=== PATIENT | male | born 1940 | race Caucasian/White ===

== ENCOUNTER 2017-04-17 14:00 | Inpatient (IN) | payer MEDICARE, OTHER ==
[~2017-04-17] VITALS: Ht 182.9 cm; Wt 81.0 kg
[2017-04-17] VITALS (11 sets, daily range): BP systolic 114–169; BP diastolic 60–83; PULSE 57–65; RESP 6–20; TEMP 96.1–97.5; O2SAT 97–100
[~2017-04-17 14:00] MED LIST: ASPI325T PO; LISI10 PO; VIAG25TA PO
[2017-04-17] MEDS ORDERED: SODIUM CHLOR 0.9% 1000 ML INJ 1,000 ML IV ONE (14:18)
--- NOTE | 2017-04-17 14:27 | PD ---
HPI Chief Complaint: Dizziness Time Seen by Provider: 14:16 Travel History International Travel<30 days: No Contact w/Intl Traveler<30days: No Traveled to known affect area: No History of Present Illness HPI This 76-year-old male says that around 8:30 today he was not feeling well. He was lightheaded and dizzy. He had trouble walking and could not walk straight. He went home and checked his blood pressure his blood pressure was elevated and he took an extra pill. He laid down but he still was not feeling well so he came to the emergency department. He was admitted to the hospital in September 2015. At that time he had a syncopal episode and an MRI showed an old basal ganglia lacunar infarct. He is not complaining of headache. He has noted some tingling in his toes. The patient does have frequent troubles with equilibrium. He feels like this is gotten better since he has been started on thyroid medication. He takes aspirin and took it today PFSH Past Medical History Cancer: No Cardiovascular Problems: Yes Endocrine: No Genitourinary: No (ED) Hypertension: Yes Immune Disorder: No Psychiatric: No Reproductive: No Respiratory: No Past Surgical History Body Medical Devices: PT HAS PLATE IN L HIP Social History Alcohol Use: Yes (daily) Tobacco Use: Yes (h.o, quit) Substance Use: No Allergies-Medications (Allergen,Severity, Reaction): Coded Allergies: No Known Allergies (Verified , 04/17/17) Reported Meds & Prescriptions Reported Meds & Active Scripts Active Reported Lisinopril 10 Mg Tab 10 Mg PO DAILY Levothyroxine (Levothyroxine Sodium) 25 Mcg Tab Unknown Dose PO DAILY Aspirin 325 Mg Tab 325 Mg PO DAILY Review of Systems General / Constitutional: No: Fever, Chills Eyes: No: Diploplia, Blurred Vision HENT: No: Headaches Cardiovascular: No: Chest Pain or Discomfort, Palpitations Respiratory: No: Shortness of Breath, Wheezing Gastrointestinal: No: Nausea, Vomiting Genitourinary: No: Frequency, Dysuria Musculoskeletal: No: Myalgias, Arthralgias Skin: No Rash, No Itching Neurologic: Positive: Weakness, Dizziness, No: Focal Abnormalities Endocrine: No: Heat Intolerance Hematologic/Lymphatic: No: Easy Bruising Physical Exam Narrative GENERAL: Well-developed male SKIN: Focused skin assessment warm/dry. HEAD: Atraumatic. Normocephalic. EYES: Pupils equal and round. No scleral icterus. No injection or drainage. ENT: No nasal bleeding or discharge. Mucous membranes pink and moist. NECK: Trachea midline. No JVD. CARDIOVASCULAR: Regular rate and rhythm. No murmur appreciated. RESPIRATORY: No accessory muscle use. Clear to auscultation. Breath sounds equal bilaterally. GASTROINTESTINAL: Abdomen soft, non-tender, nondistended. Hepatic and splenic margins not palpable. MUSCULOSKELETAL: No obvious deformities. No clubbing. No cyanosis. No edema. NEUROLOGICAL: Awake and alert. No obvious cranial nerve deficits. There is no drift of the arm. The left extrusion technician appears slightly weaker than the right. Question of slight weakness of the left leg compared to the right. Sensation is intact. Babinski on the left is equivocal and the right is clearly down PSYCHIATRIC: Appropriate mood and affect; insight and judgment normal. Data Data Last Documented VS Vital Signs Date Time Temp Pulse Resp B/P Pulse Ox O2 Delivery O2 Flow Rate FiO2 04/17/17 14:20 100 Nasal Cannula 2 04/17/17 14:20 16 04/17/17 14:15 67 04/17/17 14:05 97.5 169/83 Orders Cath For Specimen (04/17/17 14:18) Neuro Checks Q2HX12,Q4H (04/17/17 14:18) Nursing Bedside Swallow Assess .ONCE (04/17/17 14:18) Activity Bed Rest (04/17/17 14:18) Diet Npo (04/17/17 Dinner) Prothrombin Time / Inr (Pt) (04/17/17 14:18) Act Partial Throm Time (Ptt) (04/17/17 14:18) Complete Blood Count With Diff (04/17/17 14:18) Basic Metabolic Panel (Bmp) (04/17/17 14:18) Fibrinogen (04/17/17 14:18) Creatine Kinase (Cpk) (04/17/17 14:18) Troponin I (04/17/17 14:18) Ua Includes Microscopic (04/17/17 14:18) Drug Screen, Random Urine (04/17/17 14:18) Type And Screen (04/17/17 14:18) Ct Brain W/O Iv Contrast(Rout) (04/17/17 ) Electrocardiogram (04/17/17 ) Sodium Chlor 0.9% 1000 Ml Inj (Ns 1000 M (04/17/17 14:18) Blood Glucose (04/17/17 14:18) Ecg Monitoring (04/17/17 14:18) Iv Access Insert/Monitor (04/17/17 14:18) NPO (04/17/17 14:18) Oximetry (04/17/17 14:18) Oxygen Administration (04/17/17 14:18) Resp Oxygen Jes[place] C Titrat 1-4 L (04/17/17 14:18) Labs Laboratory Tests Test 04/17/17 14:20 White Blood Count 6.5 TH/MM3 Red Blood Count 5.24 MIL/MM3 Hemoglobin 16.4 GM/DL Hematocrit 48.4 % Mean Corpuscular Volume 92.5 FL Mean Corpuscular Hemoglobin 31.3 PG Mean Corpuscular Hemoglobin 33.8 % Concent Red Cell Distribution Width 12.9 % Platelet Count 219 TH/MM3 Mean Platelet Volume 7.9 FL Neutrophils (%) (Auto) 82.4 % Lymphocytes (%) (Auto) 11.0 % Monocytes (%) (Auto) 4.3 % Eosinophils (%) (Auto) 0.7 % Basophils (%) (Auto) 1.6 % Neutrophils # (Auto) 5.4 TH/MM3 Lymphocytes # (Auto) 0.7 TH/MM3 Monocytes # (Auto) 0.3 TH/MM3 Eosinophils # (Auto) 0.0 TH/MM3 Basophils # (Auto) 0.1 TH/MM3 CBC Comment DIFF FINAL Differential Comment Prothrombin Time 10.5 SEC Prothromb Time International 1.0 RATIO Ratio Activated Partial 22.9 SEC Thromboplast Time Sodium Level 138 MEQ/L Potassium Level 4.1 MEQ/L Chloride Level 105 MEQ/L Carbon Dioxide Level 24.3 MEQ/L Anion Gap 9 MEQ/L Blood Urea Nitrogen 14 MG/DL Creatinine 0.94 MG/DL Estimat Glomerular Filtration 78 ML/MIN Rate Random Glucose 149 MG/DL Calcium Level 8.8 MG/DL Total Creatine Kinase 48 U/L Troponin I LESS THAN 0.02 NG/ML MDM Medical Decision Making Medical Screen Exam Complete: Yes Emergency Medical Condition: Yes Medical Record Reviewed: Yes Differential Diagnosis Differential includes TIA, vertigo, CVA Narrative Course Stroke alert was called on patient's arrival though he actually showed up at 5 hours and 45 minutes into his event. CT scan has been read as negative. Patient has taken an aspirin this morning. He will be admitted for further evaluation Diagnosis Primary Impression: Acute onset of severe vertigo Additional Impression: CVA (cerebrovascular accident) Edwin Vogt MD April 17, 2017 14:27
[2017-04-17 14:31] LABS: AUTOMATED NEUTROPHIL # 5.4 TH/MM3 (1.8-7.7); BASOPHIL # 0.1 TH/MM3 (0-0.2); BASOPHIL % 1.6 % (0.0-2.0); EOSINOPHIL % 0.7 % (0.0-4.0); HEMATOCRIT 48.4 % (39.0-51.0); HEMO FLAGS DIFF FINAL; LYMPHOCYTE # 0.7 TH/MM3 (1.0-4.8); MEAN CELL VOLUME 92.5 FL (80.0-100.0); MEAN CORPUSCULAR HEMOGLOBIN 31.3 PG (27.0-34.0); MEAN CORPUSCULAR HGB CONC 33.8 % (32.0-36.0); MONO % 4.3 % (0.0-8.0); NEUT % 82.4 % (16.0-70.0); PLATELET COUNT 219 TH/MM3 (150-450); RED BLOOD COUNT 5.24 MIL/MM3 (4.50-5.90); RED CELL DISTRIBUTION WIDTH 12.9 % (11.6-17.2); WHITE BLOOD COUNT 6.5 TH/MM3 (4.0-11.0)
[2017-04-17] MEDS ORDERED: ASPI325T PO (14:40)
[2017-04-17] MEDS ORDERED: LEVO25TA4 PO (14:40)
[2017-04-17] MEDS ORDERED: LISI10TA3 PO (14:40)
[2017-04-17 14:41] LABS: CHLORIDE 105 MEQ/L (98-107); POTASSIUM 4.1 MEQ/L (3.5-5.1); SODIUM (NA) 138 MEQ/L (136-145)
--- NOTE | 2017-04-17 14:42 | RADHPO ---
EXAM DATE/TIME: 04/17/2017 14:19 [facility] COMPARISON: CT BRAIN W/O CONTRAST, October 07, 2015, 8:06. INDICATIONS : Stroke alert. Mild left upper and lower extremity weakness. Patient states that he felt these symptom s the last time he had a stroke. RADIATION DOSE: 60.66 CTDIvol (mGy) This report was called by Dr. Grigsby to Dr. Vogt at 2: 40 PM. MEDICAL HISTORY : Hypertension. Cerebrovascular disease. SURGICAL HISTORY : Orthopedic surgery. ENCOUNTER: Initial ACUITY: 1 day PAIN SCALE: 0/10 LOCATION: cranial TECHNIQUE: Multiple contiguous axial images were obtained of the head. Using automated exposure control and adj ustment of the mA and/or kV according to patient size, radiation dose was kept as low as reasonably a chievable to obtain optimal diagnostic quality images. FINDINGS: CEREBRUM: There is mild cerebral atrophy. Ventricles are normal in size. There is stable mild periventricular w anaya matter low attenuation and stable asymmetric low-density in the anterior limb of the left internet marketing intern al capsule. No evidence of midline shift, mass lesion, hemorrhage or acute infarction. No extra-axi al fluid collections are seen. POSTERIOR FOSSA: The cerebellum and brainstem demonstrate no acute finding. The 4th ventricle is midline. The cerebe llopontine angle is unremarkable. EXTRACRANIAL: Visualized sinuses are clear. SKULL: The calvaria is intact. No evidence of skull fracture. CONCLUSION: 1. No acute intracranial abnormality is identified. 2. Stable chronic changes include mild cerebral atrophy and mild periventricular white matter low att enuation characteristic of chronic microvascular ischemia. Jung Grigsby MD on April 17, 2017 at 14:33 Board Certified Radiologist. This report was verified electronically.
[2017-04-17 14:44] LABS: ANION GAP 9 MEQ/L (5-15); BICARBONATE 24.3 MEQ/L (21.0-32.0); BLOOD UREA NITROGEN 14 MG/DL (7-18)
[2017-04-17 14:45] LABS: APTT (PATIENT) 22.9 SEC (24.3-30.1); PROTHROMBIN TIME - PATIENT 10.5 SEC (9.8-11.6)
[2017-04-17 14:47] LABS: GLOMERULAR FILTRATION RATE 78 ML/MIN (>89)
[2017-04-17 14:54] LABS: CREATINE KINASE 48 U/L (39-308)
--- NOTE | 2017-04-17 15:28 | HHI.HP ---
[facility] Service [facility] Primary Care Physician Unknown Admission Diagnosis CVA Diagnoses: (1) Acute onset of severe vertigo Diagnosis: Principal (2) Hypertension Diagnosis: Secondary Chief Complaint: Dizziness, Travel History International Travel<30 Days: No Contact w/Intl Traveler <30 Da: No Traveled to Known Affected Are: No History of Present Illness Written by Anil Gallardo, acting as scribe for Dr. Damon on 04/17/17 at 15: 27. 76-year-old male with known history of hypertension, hypothyroidism, history of CVA who presented to hospital because of dizziness, disequilibrium. Patient indicates that his normal state of health this morning when he woke up at 6 AM. He went out as normal morning routine and took his blood pressure medication and thyroid medicine. He went to [employer] shop this morning at approximately 8 AM and on his way home he states that he started developing some mild dizziness so when he got home he checks his blood pressure and he has systolic blood pressure 160. With his blood pressure elevated he did take another pill of his blood pressure medication. He laid down and he thinks he took a nap. When he woke up it was hot in the room so he walked to the thermostat and he noticed that he had severe dizziness, had difficulty walking and ambulating. He went laid back down in bed and called his son who brought him to the hospital for evaluation. Patient does not know exactly what time he woke up from his nap. At the present time he denies any lightheadedness or dizziness. He denies any unilateral weakness, paresthesia, blurred vision, visual disturbances, difficulty eating or swallowing food. Patient had workup in the emergency department with CT scan of the brain which did not indicate any acute abnormality. It was recommended by ER physician and patient be observed in the hospital for further evaluation and management of possible stroke. Review of Systems Constitutional: COMPLAINS OF: Dizziness, DENIES: Diaphoretic episodes, Fatigue , Fever, Weight gain, Weight loss, Chills, Change in appetite, Night Sweats Eyes: DENIES: Blurred vision, Diplopia, Eye inflammation, Eye pain, Vision loss , Double Vision Ears, nose, mouth, throat: DENIES: Vertigo, Nasal discharge, Throat pain, Ear Pain, Running Nose, Sinus Pain Respiratory: DENIES: Apneas, Cough, Snoring, Wheezing, Hemoptysis, Sputum production, Shortness of breath Cardiovascular: DENIES: Chest pain, Palpitations, Syncope, Dyspnea on Exertion , Lower Extremity Edema, Orthopnea Gastrointestinal: DENIES: Abdominal pain, Black stools, Bloody stools, Constipation, Diarrhea, Nausea, Vomiting, Difficulty Swallowing, Anorexia Musculoskeletal: DENIES: Joint pain, Muscle aches, Stiffness, Joint Swelling, Back pain, Neck pain Neurologic: COMPLAINS OF: Poor Balance, DENIES: Abnormal gait, Headache, Localized weakness, Paresthesias, Seizures, Speech Problems, Tremor Psychiatric: DENIES: Anxiety, Confusion, Mood changes, Depression, Hallucinations, Agitation, Suicidal Ideation, Homicidal Ideation, Delusions Past Family Social History Past Medical History History CVA Hypertension Hypothyroidism Past Surgical History Hemorrhoidectomy Left hip surgery Reported Medications Reported Meds & Active Scripts Active Reported Lisinopril 10 Mg Tab 10 Mg PO DAILY Levothyroxine (Levothyroxine Sodium) 25 Mcg Tab Unknown Dose PO DAILY Aspirin 325 Mg Tab 325 Mg PO DAILY Allergies: Coded Allergies: No Known Allergies (Verified , 04/17/17) Family History Reviewed and significant for mother from leukemia. No family history of heart disease, lung disease, diabetes, seizures, stroke Social History Patient quit smoking 35 years ago, prior to that he smoked one pack a cigarettes a day since he was 18 years old. Patient states he drinks approximately 1 beer a month at this time. Patient eyes any illicit drugs Physical Exam Vital Signs Vital Signs Date Time Temp Pulse Resp B/P Pulse Ox O2 Delivery O2 Flow Rate FiO2 04/17/17 14:20 100 Nasal Cannula 2 04/17/17 14:20 16 100 Nasal Cannula 2 04/17/17 14:15 67 16 04/17/17 14:05 97.5 65 16 169/83 99 Physical Exam GENERAL: Well-developed, well-nourished, in no acute distress. alert and orientated HEENT: Head is normocephalic without any lesions or masses noted. Facial features are symmetric. Eyes: Pupils equal round reactive to light. Extraocular muscles are intact. Conjunctivae were clear. Oropharyngeal: Pharynx without any erythema edema. Tongue is midline without deviation. Buccal mucosa is moist without any masses or lesions NECK: Supple without any masses. Trachea midline no deviation. No JVD, no bruits are appreciated CARDIAC: Regular rhythm, regular rate. S1/S2 are heard. No murmurs gallops or rubs. LUNGS: Clear to auscultation bilaterally. No wheeze, rhonchi or rales. No use of accessory muscles on inspiration or expiration. ABDOMEN: Soft, nontender. Nondistended. Bowel sounds heard in all 4 quadrants. No organomegaly or masses. Negative rebound, negative guarding EXTREMITIES: No edema, pulses are equal bilaterally. No cyanosis or clubbing NEUROLOGY: Mood and affect appear appropriate. Cranial nerves II through XII grossly intact. Muscle strength 5/5 in upper and lower extremities bilaterally. Deep tendon reflexes are 2+ in upper and lower extremities bilaterally. Laboratory Laboratory Tests Test 04/17/17 14:20 White Blood Count 6.5 Red Blood Count 5.24 Hemoglobin 16.4 Hematocrit 48.4 Mean Corpuscular Volume 92.5 Mean Corpuscular Hemoglobin 31.3 Mean Corpuscular Hemoglobin 33.8 Concent Red Cell Distribution Width 12.9 Platelet Count 219 Mean Platelet Volume 7.9 Neutrophils (%) (Auto) 82.4 Lymphocytes (%) (Auto) 11.0 Monocytes (%) (Auto) 4.3 Eosinophils (%) (Auto) 0.7 Basophils (%) (Auto) 1.6 Neutrophils # (Auto) 5.4 Lymphocytes # (Auto) 0.7 Monocytes # (Auto) 0.3 Eosinophils # (Auto) 0.0 Basophils # (Auto) 0.1 CBC Comment DIFF FINAL Differential Comment Prothrombin Time 10.5 Prothromb Time International 1.0 Ratio Activated Partial 22.9 Thromboplast Time Sodium Level 138 Potassium Level 4.1 Chloride Level 105 Carbon Dioxide Level 24.3 Anion Gap 9 Blood Urea Nitrogen 14 Creatinine 0.94 Estimat Glomerular Filtration 78 Rate Random Glucose 149 Calcium Level 8.8 Total Creatine Kinase 48 Troponin I LESS THAN 0.02 Result Diagram: 04/17/17 1420 04/17/17 1420 Imaging Last Impressions Head CT 04/17/17 0000 Signed Impressions: Service Date/Time: Monday, April 17, 2017 14:19 - CONCLUSION: 1. No acute intracranial abnormality is identified. 2. Stable chronic changes include mild cerebral atrophy and mild periventricular white matter low attenuation characteristic of chronic microvascular ischemia. Jung Grigsby MD Assessment and Plan Assessment and Plan Dizziness, disequilibrium: A patient with known history of previous CVA and left basal ganglia Possible etiologies could include cerebellar stroke, vertigo, overuse of blood pressure medication CT of the brain did not show any acute abnormality. We'll do further evaluation with MRI of the brain, MRA of the brain Obtain carotid ultrasound We'll obtain echocardiogram Check further laboratory studies to include B12, folate, lipid panel, sedimentation rate, TSH Cardiac telemetry Obtain PT/OT evaluations Hypertension Permissive hypertension at this time When necessary medications to keep systolic blood pressure less than 200, diastolic pressure less than 100 Hypothyroidism Check TSH Resume replacement therapy DVT prevention Sequential compression devices This note was transcribed by scribe [Anil Gallardo]. I, Dr. Carter Damon personally performed the history, physical exam, and medical decision making; and confirmed the accuracy of the information in the transcribed note. Authenticated by Dr. Carter Damon on 04/17/17 at 16:40. Problem Qualifiers (1) Hypertension: Qualified Code: I15.9 - Secondary hypertension Anil Gallardo April 17, 2017 3:28 pm Carter Damon MD April 17, 2017 4:40 pm
[2017-04-17] MEDS ORDERED: ONDANSETRON HCL 4 MG/2 ML VIAL IVP PRN (15:30)
[2017-04-17] MEDS ORDERED: NALOXONE HCL 0.4 MG/ML AMP IV PRN (15:30)
[2017-04-17] MEDS ORDERED: SODIUM CHLORIDE 0.9% FLUSH 10 ML FLUSH IV FLUSH PRN (15:30)
[2017-04-17] MEDS ORDERED: DOCUSATE SODIUM 100 MG CAP PO PRN (16:30)
[2017-04-17] MEDS ORDERED: CALCIUM CARBONATE 500 MG CHEWABLE TAB CHEW PRN (16:30)
[2017-04-17] MEDS ORDERED: ACETAMINOPHEN 325 MG TAB PO PRN (16:30)
--- NOTE | 2017-04-17 17:22 | RADHPO ---
EXAM DATE/TIME: 04/17/2017 16:46 [facility] COMPARISON: CT BRAIN W/O CONTRAST, April 17, 2017, 14:19. MRI BRAIN W/O CONTRAST, October 07, 2015, 15:56. INDICATIONS : Vertigo. CVA. MEDICAL HISTORY : Hypertension. SURGICAL HISTORY : Left hip replacement. ENCOUNTER: Initial ACUITY: 1 day PAIN SCORE: 0/10 LOCATION: TECHNIQUE: Multiplanar, multisequence MRI of the brain was performed without contrast. FINDINGS: CEREBRUM: There is mild cerebral atrophy. Ventricles are normal in size. No midline shift, mass lesion, hemorr feroz or acute infarction. No extraaxial fluid collections are seen. The pituitary gland and suprase llar cistern are normal in configuration. WHITE MATTER: There is mild to moderate periventricular white matter signal change. There is stable signal change i n the anterior horn of the left internal capsule. POSTERIOR FOSSA: The cerebellum and brainstem demonstrate no acute finding. The 4th ventricle is midline. The cerebel lopontine angle is unremarkable. The cerebellar tonsils are normal in position.DIFFUSION IMAGING: No focal areas of restricted diffusion are seen. No evidence of acute infarction. EXTRACRANIAL: The visualized portions of the orbits and paranasal sinuses are unremarkable. CONCLUSION: 1. No acute intracranial abnormality is identified. There are no findings to indicate recent ischemia . 2. Chronic changes include mild cerebral atrophy and white matter changes bilaterally characteristic of chronic microvascular ischemia. Jung Grigsby MD on April 17, 2017 at 17:17 Board Certified Radiologist. This report was verified electronically.
--- NOTE | 2017-04-17 17:34 | RADHPO ---
EXAM DATE/TIME: 04/17/2017 16:46 [facility] COMPARISON: MRA BRAIN W/O CONTRAST, October 07, 2015, 15:56. INDICATIONS : Vertigo. MEDICAL HISTORY : Hypertension. SURGICAL HISTORY : Left hip replacement. ENCOUNTER: Initial ACUITY: 1 day PAIN SCORE: 0/10 LOCATION: head Please note a normal MRA of the brain does not entirely exclude the possibility of a small aneurysm, nor the possibility of distal intracranial vessel disease. TECHNIQUE: 3D time of flight MRA was performed. Source images, multiplanar STS MIP, and 3D volume MIP reconstru ctions were reviewed. FINDINGS: Anterior circulation: The internal carotid arteries demonstrate no abnormality or atherosclerotic change. A1 segments and m ore distal anterior cerebral arteries are symmetric and within normal limits. The middle cerebral art brendan branches demonstrate symmetric flow related enhancement. No aneurysm or high-grade stenosis is id entified. Posterior circulation: There are patent posterior cerebral arteries bilaterally. Vertebral arteries are codominant. The basi lar artery and posterior cerebral arteries demonstrate no significant stenosis or abnormality. No ane urysm is visualized. CONCLUSION: No acute intracranial vascular abnormality is identified. Jung Grigsby MD on April 17, 2017 at 17:28 Board Certified Radiologist. This report was verified electronically.
[2017-04-17] MEDS ORDERED: SODIUM CHLOR 0.9% 1000 ML INJ 1,000 ML IV SCH (17:45)
--- NOTE | 2017-04-17 17:45 | PD.CONS ---
History of Present Illness Service Neurology Consult Requested By er Reason for Consult stroke alert Primary Care Physician Unknown History of Present Illness 76-year-old m admitted for not feeling well, gait imbalance. began this am, >5 1 /2 hrs prior to arrival. not iv tpa candidate. also, mild symptoms that have improved. c/o feeling "hot" and unsteady gait no focal weakness, no sensory symptoms. no visual or speech changes. took extra bp meds after he noticed his bp systolic 160's and thought this may be the cause. glucose 149. ct brain naicp. 2 weeks ago had an episode in which his left arm went numb transiently. no cp, no head/neck trauma. takes aspirin daily. 09/2015 mri brain-no acute stroke. mra brain/carotid negative for any significant vasocclusive dz. Review of Systems as per medical hp/above Past Family Social History Past Medical History Hypertension Hypothyroidism Past Surgical History Hemorrhoidectomy Left hip surgery Reported Medications Reported Meds & Active Scripts Active Reported Lisinopril 10 Mg Tab 10 Mg PO DAILY Levothyroxine (Levothyroxine Sodium) 25 Mcg Tab Unknown Dose PO DAILY Aspirin 325 Mg Tab 325 Mg PO DAILY Allergies: Coded Allergies: No Known Allergies (Verified , 04/17/17) Family History Reviewed and significant for mother from leukemia. No family history of heart disease, lung disease, diabetes, seizures, stroke Social History Patient quit smoking 35 years ago, prior to that he smoked one pack a cigarettes a day since he was 18 years old. Patient states he drinks approximately 1 beer a month at this time. Patient eyes any illicit drugs Review of Systems All other ROS: ROS reviewed as documented in chart Past Family Social History Allergies: Coded Allergies: No Known Allergies (Verified , 04/17/17) Active Ordered Medications Current Medications Medications (Trade) Dose Ordered Sig/Dulce Route Start Time Stop Time Status Last Admin (NS 1000 ml Inj) 1,000 ml @ 70 mls/hr [id number] ONCE IV 04/17/17 14:18 04/18/17 04:35 04/17/17 14:45 (NS Flush) 2 ml UNSCH PRN IV FLUSH 04/17/17 15:30 (NS Flush) 2 ml BID IV FLUSH 04/17/17 21:00 (Zofran Inj) 4 mg Q6H PRN IVP 04/17/17 15:30 (Narcan Inj) 0.4 mg UNSCH PRN IV 04/17/17 15:30 (Aspirin) 325 mg DAILY PO 04/18/17 09:00 (Tylenol) 650 mg Q4H PRN PO 04/17/17 16:30 (Colace) 100 mg BID PRN PO 04/17/17 16:30 (Tums Chew) 1,000 mg TID PRN CHEW 04/17/17 16:30 Exam I&O / VS Vital Signs Date Time Temp Pulse Resp B/P Pulse Ox O2 Delivery O2 Flow Rate FiO2 04/17/17 16:30 63 16 148/72 100 Nasal Cannula 2 04/17/17 16:00 62 16 142/75 100 Nasal Cannula 2 04/17/17 15:30 64 16 158/81 100 Nasal Cannula 2 04/17/17 15:00 58 16 141/73 100 Nasal Cannula 2 04/17/17 14:30 60 16 159/77 98 Nasal Cannula 2 04/17/17 14:20 100 Nasal Cannula 2 04/17/17 14:20 16 100 Nasal Cannula 2 04/17/17 14:15 67 16 04/17/17 14:05 97.5 65 16 169/83 99 General: Alert and Oriented, No acute distress Eye: EOMI Respiratory: Non-labored respirations Neurologic: Alert, Oriented, Normal motor, CN II-XII intact Psychiatric: Cooperative, Appropriate mood & affect, Normal judgement Exam Comments ox 3, follows, no aphasia, eomi, vff, ou 3-2mm, face sym, rt hearing aid, no focal weakness, kj brisker l.rt, no clonus, planterflexor. gait steady romberg negative, tandem difficult Review/Management Diagnosis/Plan: (1) TIA (transient ischemic attack) Plan: possible vs recurrent vestibulopathy recs add plavix; d/c aspirin in 6 weeks statin for ldl>70 tele; should get outpatient event monitor, cardio eval [facility] the [facility] to r/o afib p.t. 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
[2017-04-17] MEDS: HEPARIN SODIUM - SQ 10,000 UNITS/ML VIAL SQ SCH (18:05)
[2017-04-17] MEDS: CLOPIDOGREL 75 MG TAB PO SCH (18:08)
[2017-04-17 18:13] LABS: BLOOD, URINE NEG (NEG); GLUCOSE,URINE NEG (NEG); KETONE, URINE 15 mg/dL (NEG); NITRITE,URINE NEG (NEG)
[2017-04-17 18:21] LABS: AMPHETAMINE, URINE NEG (NEG)
[2017-04-17 18:29] LABS: URINE COLOR YELLOW (YELLW/STRAW)
[2017-04-17 18:30] LABS: MUCUS URINE MOD /lpf (OCC); SQUAMOUS EPITHELIAL CELL URINE 0-5 /hpf (0-5); WBC, URINE 0-2 /hpf (0-5)
[2017-04-17 18:31] LABS: BARBITURATES, URINE NEG (NEG)
[2017-04-17 18:33] LABS: COCAINE, URINE NEG (NEG)
--- NOTE | 2017-04-17 19:56 | EKG ---
Date Performed: 04/17/2017 Time Performed: 14:00:54 PTAGE: 76 years EKG: Sinus rhythm . Left anterior fascicular block Lateral T wave changes are nonspecific Borderline ECG PREVIOUS TRACING : 10/07/2015 07.53 Compared to prior tracing no significant change DOCTOR: Kristi Du Interpretating Date/Time 04/17/2017 19:55:49
[2017-04-17] MEDS: SODIUM CHLORIDE 0.9% FLUSH 10 ML FLUSH IV FLUSH SCH (21:00)
[2017-04-17 22:18] LABS: HEMOGLOBIN A1b 1.5 %; HEMOGLOBIN Ao 85.8 %; HEMOGLOBIN LA1C 2.3 %
[2017-04-18] VITALS (8 sets, daily range): BP systolic 103–134; BP diastolic 58–85; PULSE 53–78; RESP 18–20; TEMP 96.7–97.6; O2SAT 93–100
[2017-04-18] MEDS: HEPARIN SODIUM - SQ 10,000 UNITS/ML VIAL SQ SCH ×2 (06:00→17:33)
[2017-04-18 07:41] LABS: AUTOMATED NEUTROPHIL # 3.1 TH/MM3 (1.8-7.7); BASOPHIL # 0.1 TH/MM3 (0-0.2); BASOPHIL % 1.1 % (0.0-2.0); EOSINOPHIL # 0.2 TH/MM3 (0-0.4); EOSINOPHIL % 4.3 % (0.0-4.0); HEMATOCRIT 43.3 % (39.0-51.0); HEMO FLAGS DIFF FINAL; LYMPH % 23.5 % (9.0-44.0); LYMPHOCYTE # 1.2 TH/MM3 (1.0-4.8); MEAN CELL VOLUME 93.1 FL (80.0-100.0); MEAN CORPUSCULAR HEMOGLOBIN 31.4 PG (27.0-34.0); MEAN CORPUSCULAR HGB CONC 33.7 % (32.0-36.0); MONO % 7.6 % (0.0-8.0); NEUT % 63.5 % (16.0-70.0); PLATELET COUNT 191 TH/MM3 (150-450); RED BLOOD COUNT 4.65 MIL/MM3 (4.50-5.90); RED CELL DISTRIBUTION WIDTH 12.9 % (11.6-17.2)
[2017-04-18 07:52] LABS: CHLORIDE 107 MEQ/L (98-107); SODIUM (NA) 141 MEQ/L (136-145)
[2017-04-18 08:03] LABS: ANION GAP 8 MEQ/L (5-15); BICARBONATE 25.6 MEQ/L (21.0-32.0); BLOOD UREA NITROGEN 12 MG/DL (7-18)
[2017-04-18 08:06] LABS: ALT (GPT) 17 U/L (12-78); AST (GOT) 10 U/L (15-37); GLOMERULAR FILTRATION RATE 89 ML/MIN (>89)
[2017-04-18 08:08] LABS: TOTAL BILIRUBIN ADULT 0.8 MG/DL (0.2-1.0)
[2017-04-18 08:09] LABS: ALKALINE PHOSPHATASE 48 U/L (45-117)
[2017-04-18] MEDS: CLOPIDOGREL 75 MG TAB PO SCH (08:52)
[2017-04-18] MEDS: LEVOTHYROXINE SODIUM 25 MCG TAB PO SCH (08:52)
[2017-04-18] MEDS: ASPIRIN 325 MG TAB PO SCH (08:52)
[2017-04-18] MEDS: SODIUM CHLORIDE 0.9% FLUSH 10 ML FLUSH IV FLUSH SCH ×2 (08:53→20:47)
--- NOTE | 2017-04-18 08:58 | HHI.PR ---
Subjective Remarks Patient seen and examined today in follow-up for lightheadedness, dizziness. Patient indicates that he is feeling much better. He has been up walking around without any recurrent lightheadedness, dizziness, disequilibrium. Patient still undergoing workup at this time. Final disposition after workup complete and discussion with neurologist Objective Vitals Vital Signs Date Time Temp Pulse Resp B/P Pulse Ox O2 Delivery O2 Flow Rate FiO2 04/18/17 04:00 97.2 54 18 125/76 99 04/18/17 00:00 97.4 53 18 103/58 99 04/17/17 21:32 98 21 04/17/17 20:08 61 04/17/17 20:00 97.0 59 20 114/69 98 04/17/17 18:00 96.1 57 18 147/60 97 04/17/17 16:30 63 16 148/72 100 Nasal Cannula 2 04/17/17 16:00 62 16 142/75 100 Nasal Cannula 2 04/17/17 15:30 64 16 158/81 100 Nasal Cannula 2 04/17/17 15:00 58 16 141/73 100 Nasal Cannula 2 04/17/17 14:30 60 16 159/77 98 Nasal Cannula 2 04/17/17 14:20 100 Nasal Cannula 2 04/17/17 14:20 16 100 Nasal Cannula 2 04/17/17 14:15 67 16 04/17/17 14:05 97.5 65 16 169/83 99 I/O 04/17/17 04/17/17 04/17/17 04/18/17 04/18/17 04/18/17 07:00 15:00 23:00 07:00 15:00 23:00 Intake Total 481 ml 864 ml Output Total 150 ml Balance 481 ml 714 ml Intake Oral 240 ml 240 ml IV Total 241 ml 624 ml Output Urine Total 150 ml # Voids 2 2 # Bowel Movements 0 0 Result Diagram: 04/18/17 0610 04/18/17 0610 Objective Remarks GENERAL: Well-developed, well-nourished, in no acute distress. alert and orientated HEENT: Head is normocephalic without any lesions or masses noted. Facial features are symmetric. Eyes: Pupils equal round reactive to light. Extraocular muscles are intact. Conjunctivae were clear. NECK: Supple without any masses. Trachea midline no deviation. No JVD, CARDIAC: Regular rhythm, regular rate. S1/S2 are heard. No murmurs gallops or rubs. LUNGS: Clear to auscultation bilaterally. No wheeze, rhonchi or rales. No use of accessory muscles on inspiration or expiration. ABDOMEN: Soft, nontender. Nondistended. Bowel sounds heard in all 4 quadrants. No organomegaly or masses. Negative rebound, negative guarding EXTREMITIES: No edema, pulses are equal bilaterally. No cyanosis or clubbing NEUROLOGY: Mood and affect appear appropriate. Cranial nerves II through XII grossly intact. Moving all extremities, speech is clear Urinary Catheter: No Vascular Central Line Catheter: No A/P Assessment and Plan Dizziness, disequilibrium: A patient with known history of previous CVA and left basal ganglia Possible etiologies could include cerebellar stroke, vertigo, overuse of blood pressure medication, bradycardia CT of the brain did not show any acute abnormality. MRI and MRA of the brain were unremarkable Carotid ultrasound indicates 5069 percent bilateral internal carotid stenosis , will pursue MRA of the carotid for further evaluation MRA of the carotid indicate 60% stenosis of the right internal carotid with irregularity and deep plaque ulceration. Smooth stenosis of the left internal carotid artery at 4050 percent Echocardiogram indicates normal systolic function, ejection fraction 55-60%. MRI of the cervical spine, pending Further laboratory studies to include B12, folate, sedimentation rate, TSH were unremarkable, Lipid panel indicates LDL 74, will start Lipitor 10 mg daily Cardiac telemetry was reviewed which indicated bradycardia from 39-50 between 6 PM and 3 AM this morning Awaiting PT/OT evaluations Neurology evaluated the patient Plavix was added to regimen. Continue aspirin for now and discontinue in 6 weeks per neurology Consult vascular surgery for symptomatic carotid stenosis Hypertension Permissive hypertension at this time When necessary medications to keep systolic blood pressure less than 200, diastolic pressure less than 100 Blood pressure has been stable, patient with episodes of bradycardia. Will reevaluate resumption of home medications Hypothyroidism Check TSH Resumed replacement therapy DVT prevention Sequential compression devices Anil Gallardo April 18, 2017 08:58
--- NOTE | 2017-04-18 09:00 | RADHPO ---
EXAM DATE/TIME: 04/18/2017 08:23 [facility] COMPARISON: No previous studies available for comparison. INDICATIONS : Cerebrovascular accident. Dizziness. MEDICAL HISTORY : Hypertension. SURGICAL HISTORY : Lef hip plate. ENCOUNTER: Subsequent ACUITY: 1 day PAIN SCORE: 0/10 LOCATION: Bilateral neck PEAK SYSTOLIC VELOCITIES (cm/sec): ICA/CCA RATIO: Right: 1.9 Left: 1.7 ICA: Right: 164 Left: 153 CCA: Right: 85 Left: 92 ECA: Right: 99 Left: 110 VERTEBRAL: Right: 42 antegrade Left: 52 antegrade Elevated flow velocities and ICA/CCA ratios have been found to correlate with increased degrees of vessel stenosis, calculated as percentage of diameter relative to a normal segment of distal ICA/CCA FINDINGS: RIGHT CAROTID: Moderate to severe plaque. The waveforms are within normal limits. LEFT CAROTID: Moderate to severe plaque. The waveforms are within normal limits. VERTEBRAL ARTERIES: Antegrade flow is seen in both vertebral arteries. MISCELLANEOUS: None. CONCLUSION: There are 50-69% stenoses within both internal carotid arteries. Flaco oJrdan MD on April 18, 2017 at 8:58 Board Certified Radiologist. This report was verified electronically.
[2017-04-18 09:01] LABS: HDL CHOLESTEROL 47.7 MG/DL (40.0-60.0); LDL CHOLESTEROL 72 MG/DL (0-99)
--- NOTE | 2017-04-18 11:05 | EC ---
Study Study Date:04/18/2017 STUDY CONCLUSIONS SUMMARY - Left ventricle: The cavity size was normal. Systolic function was normal. The estimated ejection fraction was in the range of 55% to 60%. Although no diagnostic regional wall motion abnormality was identified, this possibility cannot be completely excluded on the basis of this study. Doppler parameters are consistent with abnormal left ventricular relaxation (grade 1 diastolic dysfunction). - Aortic valve: Mild regurgitation. If LV function is below 40, please consider prescribing an ACEI or ARB or document rationale for non-use. PROCEDURE DATA STUDY STATUS: Elective. Procedure: Transthoracic echocardiography. Image quality was good. Scanning was performed from the parasternal, apical, and subcostal acoustic windows. Study completion: The patient tolerated the procedure well. Transthoracic echocardiography. M-mode, complete 2D, complete spectral Doppler, and color Doppler. Patient status: Inpatient. CARDIAC ANATOMY LEFT VENTRICLE: The cavity size was normal. Systolic function was normal. The estimated ejection fraction was in the range of 55% to 60%. Although no diagnostic regional wall motion abnormality was identified, this possibility cannot be completely excluded on the basis of this study. Doppler parameters are consistent with abnormal left ventricular relaxation (grade 1 diastolic dysfunction). AORTIC VALVE: Probably trileaflet; mildly thickened leaflets. Doppler: There was no stenosis. Mild regurgitation. Peak gradient: 16mm Hg (S). MITRAL VALVE: The valve appears to be grossly normal. Doppler: There was no evidence for stenosis. Trace regurgitation. Peak gradient: 2mm Hg (D). LEFT ATRIUM: The atrium was normal in size. ATRIAL SEPTUM: No defect or patent foramen ovale was identified. RIGHT VENTRICLE: The cavity size was normal. PULMONIC VALVE: Not well visualized. Doppler: There was no evidence for stenosis. No significant regurgitation. TRICUSPID VALVE: The valve appears to be grossly normal. Doppler: There was no evidence for stenosis. Trace regurgitation. PERICARDIUM: There was no pericardial effusion. BASIC MEASUREMENTS ADULT Normal Left ventricle LV internal dimension, ED, chordal level, *41.7 mm 43-52 PLAX LV internal dimension, ES, chordal level, 33 mm 23-38 PLAX Fractional shortening, chordal level, PLAX *21 % >29 LV posterior wall thickness, ED 8.05 mm IVS/LVPW ratio, ED 1.15 <1.3 Ventricular septum Septal thickness, ED 9.22 mm Aortic valve Leaflet separation 22 mm 15-26 Left atrium Anterior-posterior dimension 32 mm Right ventricle RV internal dimension, ED, PLAX 20.4 mm 19-38 BASIC MEASUREMENTS ADULT Normal Aortic valve Leaflet separation 22 mm 15-26 Aorta Root diameter, ED 32 mm 20-37 DOPPLER MEASUREMENTS ADULT Normal Aortic valve Peak velocity, S 197 cm/s Peak gradient, S 16 mm Hg Mitral valve Peak E-wave velocity 73.1 cm/s Peak A-wave velocity 88.4 cm/s Peak gradient, D 2 mm Hg Peak E/A ratio 0.8 Tricuspid valve Regurgitant peak velocity 159 cm/s Peak RV-RA gradient, S 10 mm Hg Maximal regurgitant velocity 159 cm/s LEGEND: Mean values are shown as u=mean value. Asterisk (*) gotti values outside specified normal range. Prepared and signed by Shaun Shankar [id number]
[2017-04-18 12:43] LABS: RAPID PLASMA REAGIN SCREEN NON-REACTIVE (NON-REACTVE)
[2017-04-18] MEDS ORDERED: GADODIAMIDE PF 287 MG/ML 20 ML VIAL (for RAD MRI) IV ONE (14:59)
--- NOTE | 2017-04-18 15:24 | RADHPO ---
EXAM DATE/TIME: 04/18/2017 13:58 [facility] COMPARISON: US CAROTID ARTERIES, April 18, 2017, 8:23. INDICATIONS : Weakness. CONTRAST: 20 cc Omniscan (gadodiamide) IV MEDICAL HISTORY : Hypertension. SURGICAL HISTORY : Hip surgery. ENCOUNTER: Initial ACUITY: 2 day PAIN SCORE: 1/10 LOCATION: neck Percent stenosis is calculated using the diameter of the stenotic region over the diameter of the nor mal distal internal carotid artery. TECHNIQUE: Bolus infused MRA of the extracranial circulation was performed using a neurovascular coil. Post pro cessing was performed including rotating subvolume maximum intensity projections of each carotid iris ry, rotating full volume maximum intensity projections of both carotid arteries, sagittal and coronal sliding thin slab reformations of each carotid artery, and left oblique sliding thin slab reformatio n through the aortic arch to include the origin of the arch branch vessels. FINDINGS: AORTIC ARCH: There is a three vessel origin of the great vessels from the aorta. No evidence of ostial narrowing. RIGHT CAROTID: There is irregular eccentric stenosis involving the proximal right internal carotid artery with assoc iated deep plaque ulceration. There is about 60% luminal narrowing which is maximum at a location abo ut a centimeter above the bifurcation. Beyond this disease, the right ICA regains normal caliber and appearance and is thereafter widely patent to the skull base. LEFT CAROTID: There is moderate smooth tapering of the proximal left ICA with perhaps 40-50% stenotic narrowing 1-2 cm above the bifurcation region. Remainder of the vessel is intact to the skull base. VERTEBRALS: Patent bilaterally, left side minimally dominant. CONCLUSION: 60% right carotid stenosis with irregularity and deep plaque ulceration. Smooth 40-50% stenosis on th e left. Jung Mckeon MD on April 18, 2017 at 15:17 Board Certified Radiologist. This report was verified electronically.
--- NOTE | 2017-04-18 15:38 | RADHPO ---
EXAM DATE/TIME: 04/18/2017 13:58 [facility] COMPARISON: No previous studies available for comparison. INDICATIONS : Vertigo. MEDICAL HISTORY : Hypertension. SURGICAL HISTORY : Hip surgery. ENCOUNTER: Initial ACUITY: 2 day PAIN SCORE: 0/10 LOCATION: neck TECHNIQUE: Multiplanar, multisequence MRI examination of the cervical spine was performed. FINDINGS: VERTEBRAE: Normal vertebral body height. Homogeneous marrow signal. ALIGNMENT: No evidence of subluxation. CORD: Normal configuration and signal. POST FOSSA: The cerebellar tonsils are normal in position. C2-C3: The thecal sac has a normal configuration. There is no evidence of disc herniation or spinal canal s tenosis. The neural foramina are patent bilaterally. C3-C4: Mild broad-based disc bulge abuts the thecal sac without canal stenosis. The neural foramina are carter nt bilaterally. C4-C5: Mild broad-based disc bulge abuts the thecal sac without canal stenosis. The neural foramina are carter nt bilaterally. C5-C6: Mild broad-based protrusion abuts the thecal sac without canal stenosis. Moderate neural foraminal na rrowing bilaterally C6-C7: Mild broad-based protrusion abuts the thecal sac without canal stenosis. Mild neural foraminal narrow ing bilaterally C7-T1: Mild broad-based disc bulge abuts the thecal sac without canal stenosis. The neural foramina are carter nt bilaterally. CONCLUSION: 1. Multilevel disc bulges/protrusions. 2. No canal stenosis. Flaco Jordan MD on April 18, 2017 at 15:23 Board Certified Radiologist. This report was verified electronically.
[2017-04-18] MEDS: ATORVASTATIN 10 MG TAB PO SCH (20:45)
[2017-04-19] VITALS (7 sets, daily range): BP systolic 127–142; BP diastolic 75–84; PULSE 56–63; RESP 18–20; TEMP 96.5–97.5; O2SAT 94–98
[2017-04-19] MEDS: LEVOTHYROXINE SODIUM 25 MCG TAB PO SCH (06:00)
[2017-04-19] MEDS: HEPARIN SODIUM - SQ 10,000 UNITS/ML VIAL SQ SCH ×2 (06:00→18:11)
[2017-04-19] MEDS: SODIUM CHLORIDE 0.9% FLUSH 10 ML FLUSH IV FLUSH SCH ×2 (08:34→21:55)
[2017-04-19] MEDS: CLOPIDOGREL 75 MG TAB PO SCH (09:17)
[2017-04-19] MEDS: ASPIRIN 325 MG TAB PO SCH (09:17)
--- NOTE | 2017-04-19 10:31 | HHI.PR ---
Subjective Remarks The patient was resting comfortably in bed. His son was at the bedside. The patient says his symptoms have resolved. He would like to have a procedure done if he needs to as he was told that he has a problem in his neck. Objective Vitals Vital Signs Date Time Temp Pulse Resp B/P Pulse Ox O2 Delivery O2 Flow Rate FiO2 04/19/17 08:00 97.0 56 18 139/84 98 04/19/17 04:00 96.5 60 18 138/83 98 04/19/17 00:00 96.7 60 18 127/77 98 04/18/17 20:00 96.7 60 18 127/76 100 04/18/17 19:42 98 21 04/18/17 16:00 97.2 56 20 130/85 98 04/18/17 12:00 97.1 68 20 134/75 97 I/O 04/18/17 04/18/17 04/18/17 04/19/17 04/19/17 04/19/17 07:00 15:00 23:00 07:00 15:00 23:00 Intake Total 864 ml 240 ml Output Total 150 ml Balance 714 ml 240 ml Intake Oral 240 ml 240 ml IV Total 624 ml Output Urine Total 150 ml # Voids 2 4 3 # Bowel Movements 0 1 0 Result Diagram: 04/18/17 0610 04/18/17 0610 Imaging Last Impressions Neck Magnetic Resonance Angiography 04/18/17 0000 Signed Impressions: Service Date/Time: Tuesday, April 18, 2017 13:58 - CONCLUSION: 60%% right carotid stenosis with irregularity and deep plaque ulceration. Smooth 40-50%% stenosis on the left. Jung Mckeon MD Cervical Spine MRI 04/18/17 0000 Signed Impressions: Service Date/Time: Tuesday, April 18, 2017 13:58 - CONCLUSION: 1. Multilevel disc bulges/protrusions. 2. No canal stenosis. Flaco Jordan MD Carotid Artery Ultrasound 04/18/17 0000 Signed Impressions: Service Date/Time: Tuesday, April 18, 2017 08:23 - CONCLUSION: There are 50-69%% stenoses within both internal carotid arteries. Flaco Jordan MD Head Magnetic Resonance Angiography 04/17/17 0000 Signed Impressions: Service Date/Time: Monday, April 17, 2017 16:46 - CONCLUSION: No acute intracranial vascular abnormality is identified. Jung Grigsby MD Head CT 04/17/17 0000 Signed Impressions: Service Date/Time: Monday, April 17, 2017 14:19 - CONCLUSION: 1. No acute intracranial abnormality is identified. 2. Stable chronic changes include mild cerebral atrophy and mild periventricular white matter low attenuation characteristic of chronic microvascular ischemia. Jung Grigsby MD Brain MRI 04/17/17 0000 Signed Impressions: Service Date/Time: Monday, April 17, 2017 16:46 - CONCLUSION: 1. No acute intracranial abnormality is identified. There are no findings to indicate recent ischemia. 2. Chronic changes include mild cerebral atrophy and white matter changes bilaterally characteristic of chronic microvascular ischemia. Jung Grigsby MD Objective Remarks GENERAL: Well-developed, well-nourished, in no acute distress. HEENT: Head is normocephalic without any lesions or masses noted. Facial features are symmetric. Eyes: Pupils equal round reactive to light. Extraocular muscles are intact. Conjunctivae were clear. NECK: Supple without any masses. Trachea midline no deviation. No JVD, no carotid bruits. CARDIAC: Regular rhythm, regular rate. S1/S2 are heard. No murmurs gallops or rubs. LUNGS: Clear to auscultation bilaterally. No wheeze, rhonchi or rales. No use of accessory muscles on inspiration or expiration. ABDOMEN: Soft, nontender. Nondistended. Bowel sounds heard in all 4 quadrants. No organomegaly or masses. Negative rebound, negative guarding. EXTREMITIES: No edema, pulses are equal bilaterally. No cyanosis or clubbing NEUROLOGY: Mood and affect appear appropriate. Cranial nerves II through XII grossly intact. Moving all extremities, speech is clear. PSYCH: Mood and affect appropriate. Medications and IVs Current Medications Medications (Trade) Dose Ordered Sig/Dulce Route Start Time Stop Time Status Last Admin (NS Flush) 2 ml UNSCH PRN IV FLUSH 04/17/17 15:30 (NS Flush) 2 ml BID IV FLUSH 04/17/17 21:00 04/18/17 20:47 (Zofran Inj) 4 mg Q6H PRN IVP 04/17/17 15:30 (Narcan Inj) 0.4 mg UNSCH PRN IV 04/17/17 15:30 (Aspirin) 325 mg DAILY PO 04/18/17 09:00 04/19/17 09:17 (Tylenol) 650 mg Q4H PRN PO 04/17/17 16:30 (Colace) 100 mg BID PRN PO 04/17/17 16:30 (Tums Chew) 1,000 mg TID PRN CHEW 04/17/17 16:30 (Plavix) 75 mg DAILY PO 04/17/17 18:00 04/19/17 09:17 (Heparin Inj) 5,000 units Q12H SQ 04/17/17 18:00 04/19/17 06:00 (Synthroid) 25 mcg DAILY@0600 PO 04/18/17 09:00 04/19/17 06:00 (Lipitor) 10 mg HS PO 04/18/17 21:00 04/18/17 20:45 A/P Problem List: (1) Acute onset of severe vertigo ICD Code: R42 Status: Acute (2) Hypertension ICD Code: I10 Status: Acute Assessment and Plan Dizziness, disequilibrium A patient with known history of previous CVA. CT of the brain did not show any acute abnormality. MRI and MRA of the brain were unremarkable. Carotid ultrasound indicated 5069 percent bilateral internal carotid stenosis. MRA of the carotids indicated 60% stenosis of the right internal carotid with irregularity and deep plaque ulceration; Smooth stenosis of the left internal carotid artery at 4050%. MRI cervical spine with multilevel disc bulges/ protrusions. Echocardiogram indicates normal systolic function, ejection fraction 55-60%. Further laboratory studies to include B12, folate, sedimentation rate, TSH were unremarkable. Lipid panel indicates LDL 74. Appreciate neurology consult. - PT/OT evaluations. - Plavix was added to regimen. Continue aspirin for now and discontinue in 6 weeks per neurology. - Consult vascular surgery for symptomatic carotid stenosis. - [facility] A fib. Hypertension/ Bradycardia Well controlled at this time, with episodes of bradycardia. - telemetry. - resume lisinopril if indicated. Hypothyroidism TSH normal. - Resumed replacement therapy. DVT prevention: Sequential compression devices Discharge Planning Awaiting vascular surgery evaluation. Problem Qualifiers (1) Hypertension: Qualified Code: I15.9 - Secondary hypertension Delon Haley DO April 19, 2017 10:31
[2017-04-19] MEDS ORDERED: CLOPIDOGREL 75 MG TAB PO SCH (17:15)
--- NOTE | 2017-04-19 17:26 | PD.CAR.PN ---
CVT Progress Note Subjective/Hospital Course: Patient with symptomatic right internal carotid artery stenosis several TIAs in last few weeks Carotid stenosis is only about 60-65% however it has a large ulcerated plaque is clearly the culprit in this patient's symptomatology Patient should be transferred to the main hospital and will undergo right carotid endarterectomy at this admission probably Sunday Full consult dictated Thanks Jimmy Objective: Vital Signs Date Time Temp Pulse Resp B/P Pulse Ox O2 Delivery O2 Flow Rate FiO2 04/19/17 12:00 97.4 60 18 130/75 97 04/19/17 08:00 97.0 56 18 139/84 98 04/19/17 08:00 94 21 04/19/17 04:00 96.5 60 18 138/83 98 04/19/17 00:00 96.7 60 18 127/77 98 04/18/17 20:00 96.7 60 18 127/76 100 04/18/17 19:42 98 21 Result Diagram: 04/18/17 0610 04/18/17 0610 Karli Sebastian MD April 19, 2017 17:26
--- NOTE | 2017-04-19 18:09 | MB ---
cc: MD [facility] DATE OF CONSULTATION: 04/19/2017. REASON FOR CONSULTATION: TIA. Right internal carotid artery stenosis with ulcerated plaque. Hypertension. Previous CVA. HISTORY OF PRESENT ILLNESS: This is a 76-year-old gentleman with known history of hypertension and previous CVA who presented to the hospital with the story that around Sunday he suddenly felt hot, lost equilibrium, had to lie down and when he got up about an hour later he fell on the floor because just could not keep his balance. the patient states that at that time he had tingling in his left arm and the left leg. About a few weeks ago, the patient [place] he started tingling in the left arm and left leg and had to go home and felt weakness in the leg but then nothing was done about it apparently. The patient does have a history of previous stroke. Now the patient has been worked up, the question arises about nature of his symptoms and possible surgical indications. PAST MEDICAL HISTORY: 1. CVA. 2. Hypertension. 3. Hypothyroidism. PAST SURGICAL HISTORY: 1. Left hip replacement. 2. Hemorrhoidectomy. MEDICATIONS: His medications include: 1. Synthroid. 2. Aspirin. 3. Lisinopril. ALLERGIES: NO ALLERGIES. SOCIAL HISTORY: The patient did not smoke for many, many years. Drinks socially, very rarely. 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 PHYSICAL EXAMINATION: GENERAL: The physical examination reveals a pleasant 76-hour-old gentleman somewhat nervous. HEAD, EYES, EARS, NOSE, THROAT: Normocephalic. No trauma to the head. Pupils equal and reactive. Extraocular muscles intact. Slight facial asymmetry noted with slight droop of the face on the left, but this may be simply a natural variant. NECK: Bilateral carotid pulses. Actually, I do not appreciate any bruits. CHEST: Bilateral breath sounds. HEART: Regular rhythm. The patient does not have arrhythmias. ABDOMEN: Abdomen soft. Active bowel sounds. No rebound. No guarding. No masses. EXTREMITIES: The patient has palpable femoral, popliteal, dorsalis pedis and posterior tibial pulses. BACK: The back is normal. NEUROLOGIC EXAMINATION: At this point, the patient is neurologically fully intact. There is no lateralization. Motor strength is bilaterally normal 5/5. Normal deep tendon reflexes. IMPRESSION AND RECOMMENDATIONS: I reviewed laboratory and diagnostic procedure. This gentleman currently does not have any symptoms; however, based on his history, it appears the patient had several TIAs including the one that brought him to the hospital and one a few weeks ago when he had tingling and weakness in the left arm and leg. On the brain MRA which was preformed, the patient had some atrophy and microvascular changes; however, no sign of acute stroke. On the MRI of the carotids on the other hand, the patient has a about 60% to 70% narrowing of the right internal carotid artery just beyond the bifurcation but most concerning is a large ulcerated plaque which tells me that the patient probably flushed a piece of plaque off into his brain and that was the TIA. At this point, the following is recommended: Patients with 70% or more asymptomatic carotid artery stenosis are by NASCET criteria candidates for surgery and the risks of stroke without surgery exceed those with surgery. Of course, this has exceptions with elderly patients who have less than 4 years of natural life by prediction, or those who are simply not candidates for surgery. As far as less than 70% carotid stenosis is concerned, if the patient has symptoms that can be attributed to the vascular supply, then the picture becomes a little more complex. About 70% of all strokes are due to either small vessel disease of the brain or cardiac arrhythmias; only about 30% are due to extra-cranial carotid disease. In this particular gentleman, there is an ulcerated plaque present with a carotid stenosis and the symptoms clearly fall in the picture of TIA and stroke. Therefore, at this point I definitely recommend surgery on this gentleman. all things equally should be done within this admission. I have explained risks and benefits to the patient and we will proceed with surgery in next 48 hours. I thank you very much for the referral. CRITICAL CARE TIME: Forty (40) minutes. Karli CRAFT/HIRA /5:05 PM /5:57 PM DARREN
[2017-04-19] MEDS: ATORVASTATIN 10 MG TAB PO SCH (21:54)
[2017-04-20] VITALS (7 sets, daily range): BP systolic 111–146; BP diastolic 60–72; PULSE 51–66; RESP 18–20; TEMP 97–97.8; O2SAT 97–98
[2017-04-20] MEDS: LEVOTHYROXINE SODIUM 25 MCG TAB PO SCH (05:17)
[2017-04-20] MEDS: HEPARIN SODIUM - SQ 10,000 UNITS/ML VIAL SQ SCH ×2 (05:17→17:15)
[2017-04-20] MEDS: CLOPIDOGREL 75 MG TAB PO SCH (07:57)
[2017-04-20] MEDS: SODIUM CHLORIDE 0.9% FLUSH 10 ML FLUSH IV FLUSH SCH ×2 (07:57→19:40)
[2017-04-20] MEDS: ASPIRIN 325 MG TAB PO SCH (07:57)
--- NOTE | 2017-04-20 08:52 | HHI.PR ---
Review/Management Diagnosis/Plan: (1) TIA (transient ischemic attack) Plan: probable rt ica tia had transient left arm numbness 2 weeks ago- neuro stable reviewed tests with the pt recs plans for rt cea plavix; will d/c aspirin d/c planning post-op neuro [facility] (2) Cervical spondylosis without myelopathy Plan: brisk kj check mri cspine (3) Vestibulopathy (4) Hypertension (5) Dizziness Subjective Subjective Comments No acute events reported No headache No chest pain No dyspnea Active Medications Current Medications Medications (Trade) Dose Ordered Sig/Dulce Route Start Time Stop Time Status Last Admin (NS Flush) 2 ml UNSCH PRN IV FLUSH 04/17/17 15:30 (NS Flush) 2 ml BID IV FLUSH 04/17/17 21:00 04/20/17 07:57 (Zofran Inj) 4 mg Q6H PRN IVP 04/17/17 15:30 (Narcan Inj) 0.4 mg UNSCH PRN IV 04/17/17 15:30 (Aspirin) 325 mg DAILY PO 04/18/17 09:00 04/20/17 07:57 (Tylenol) 650 mg Q4H PRN PO 04/17/17 16:30 (Colace) 100 mg BID PRN PO 04/17/17 16:30 (Tums Chew) 1,000 mg TID PRN CHEW 04/17/17 16:30 (Plavix) 75 mg DAILY PO 04/17/17 18:00 04/20/17 07:57 (Heparin Inj) 5,000 units Q12H SQ 04/17/17 18:00 04/20/17 05:17 (Synthroid) 25 mcg DAILY@0600 PO 04/18/17 09:00 04/20/17 05:17 (Lipitor) 10 mg HS PO 04/18/17 21:00 04/19/17 21:54 Allergies Allergies Coded Allergies No Known Allergies (Verified04/17/17) Review of Systems All other ROS: ROS reviewed as documented in chart Exam I&O / VS 04/19/17 04/19/17 04/20/17 15:00 23:00 07:00 Intake Total 725 ml 120 ml Balance 725 ml 120 ml Intake Oral 725 ml 120 ml # Voids 3 2 # Bowel Movements 1 0 Vital Signs Date Time Temp Pulse Resp B/P Pulse Ox O2 Delivery O2 Flow Rate FiO2 04/20/17 08:39 53 04/20/17 08:38 97.2 58 18 130/72 97 04/20/17 04:00 97.2 52 20 113/60 98 04/20/17 02:19 51 04/19/17 22:40 97.5 63 20 136/81 97 04/19/17 19:52 96 04/19/17 16:00 97.3 63 18 142/81 96 04/19/17 12:00 97.4 60 18 130/75 97 General: Alert and Oriented, No acute distress Eye: EOMI Respiratory: Non-labored respirations Neurologic: Alert, Oriented, Normal motor, CN II-XII intact Psychiatric: Cooperative, Appropriate mood & affect, Normal judgement Exam Comments ox 3, follows, no aphasia, eating breakfast, eomi, vff, ou 3-2mm, face sym, rt hearing aid, no focal weakness, kj brisker l > rt, no clonus, planterflexor. 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
--- NOTE | 2017-04-20 13:37 | HHI.PR ---
Subjective Remarks Patient reports that he is feeling well. No headache, dizziness, or focal weakness. Objective Vitals Vital Signs Date Time Temp Pulse Resp B/P Pulse Ox O2 Delivery O2 Flow Rate FiO2 04/20/17 12:00 97.0 65 18 146/68 97 04/20/17 08:39 53 04/20/17 08:38 97.2 58 18 130/72 97 04/20/17 04:00 97.2 52 20 113/60 98 04/20/17 02:19 51 04/19/17 22:40 97.5 63 20 136/81 97 04/19/17 19:52 96 04/19/17 16:00 97.3 63 18 142/81 96 I/O 04/19/17 04/19/17 04/19/17 04/20/17 04/20/17 04/20/17 07:00 15:00 23:00 07:00 15:00 23:00 Intake Total 240 ml 725 ml 120 ml Balance 240 ml 725 ml 120 ml Intake Oral 240 ml 725 ml 120 ml # Voids 3 3 2 # Bowel Movements 0 1 0 Result Diagram: 04/18/17 0610 04/18/17 0610 Imaging Last Impressions Neck Magnetic Resonance Angiography 04/18/17 0000 Signed Impressions: Service Date/Time: Tuesday, April 18, 2017 13:58 - CONCLUSION: 60%% right carotid stenosis with irregularity and deep plaque ulceration. Smooth 40-50%% stenosis on the left. Jung Mckeon MD Cervical Spine MRI 04/18/17 0000 Signed Impressions: Service Date/Time: Tuesday, April 18, 2017 13:58 - CONCLUSION: 1. Multilevel disc bulges/protrusions. 2. No canal stenosis. Flaco Jordan MD Carotid Artery Ultrasound 04/18/17 0000 Signed Impressions: Service Date/Time: Tuesday, April 18, 2017 08:23 - CONCLUSION: There are 50-69%% stenoses within both internal carotid arteries. Flaco Jordan MD Head Magnetic Resonance Angiography 04/17/17 0000 Signed Impressions: Service Date/Time: Monday, April 17, 2017 16:46 - CONCLUSION: No acute intracranial vascular abnormality is identified. Jung Grigsby MD Head CT 04/17/17 0000 Signed Impressions: Service Date/Time: Monday, April 17, 2017 14:19 - CONCLUSION: 1. No acute intracranial abnormality is identified. 2. Stable chronic changes include mild cerebral atrophy and mild periventricular white matter low attenuation characteristic of chronic microvascular ischemia. Jung Grigsby MD Brain MRI 04/17/17 0000 Signed Impressions: Service Date/Time: Monday, April 17, 2017 16:46 - CONCLUSION: 1. No acute intracranial abnormality is identified. There are no findings to indicate recent ischemia. 2. Chronic changes include mild cerebral atrophy and white matter changes bilaterally characteristic of chronic microvascular ischemia. Jung Grigsby MD Objective Remarks GENERAL: This is a well-nourished, well-developed patient, in no apparent distress. CARDIOVASCULAR: Normal rate and regular rhythm without murmurs, gallops, or rubs. RESPIRATORY: Good respiratory efforts. Breath sounds equal and clear to auscultation bilaterally. GASTROINTESTINAL: Abdomen soft, non-tender, non-distended. Normal active bowel sounds MUSCULOSKELETAL: Extremities without cyanosis, or edema. NEURO: Alert & Oriented x4 to person, place, time, situation. Moves all ext x4 PSYCH: Appropriate mood and affect. A/P Problem List: (1) Acute onset of severe vertigo ICD Code: R42 Status: Acute (2) Hypertension ICD Code: I10 Status: Acute (3) Carotid stenosis, bilateral ICD Code: I65.23 Status: Acute (4) Dizziness ICD Code: R42 Status: Acute Assessment and Plan 76-year-old male with symptomatic carotid artery stenosis. Patient presented with probable TIA, dizziness and disequilibrium. Dizziness, disequilibrium A patient with known history of previous CVA. CT of the brain did not show any acute abnormality. MRI and MRA of the brain were unremarkable. Carotid ultrasound indicated 5069 percent bilateral internal carotid stenosis. MRA of the carotids indicated 60% stenosis of the right internal carotid with irregularity and deep plaque ulceration; Smooth stenosis of the left internal carotid artery at 4050%. MRI cervical spine with multilevel disc bulges/ protrusions. Echocardiogram indicates normal systolic function, ejection fraction 55-60%. Further laboratory studies to include B12, folate, sedimentation rate, TSH were unremarkable. Lipid panel indicates LDL 74. Appreciate neurology consult. - Appreciate vascular surgery following. Plan for intervention in the morning. - Continue aspirin for now. Plavix on hold. Plan to discharge the patient on Plavix and discontinue aspirin when cleared by surgery. - [facility] A [facility]. Hypertension/ Bradycardia Well controlled at this time, with episodes of bradycardia. - telemetry. - resume lisinopril if indicated. Hypothyroidism TSH normal. - Resumed replacement therapy. DVT prevention: Sequential compression devices Discharge Planning Admit to inpatient. Patient needs surgical intervention for symptomatic carotid stenosis. Problem Qualifiers (1) Hypertension: Qualified Code: I15.9 - Secondary hypertension Sid Lamar MD April 20, 2017 13:37
--- NOTE | 2017-04-20 15:13 | PD.CAR.PN ---
CVT Progress Note Subjective/Hospital Course: Patient with symptomatic right internal carotid artery stenosis several TIAs in last few weeks Carotid stenosis is only about 60-65% however it has a large ulcerated plaque is clearly the culprit in this patient's symptomatology Patient should be transferred to the main hospital and will undergo right carotid endarterectomy at this admission probably Sunday Full consult dictated Thanks J 04/20/17 Patients with symptomatic right internal carotid artery stenosis and an ulcerated plaque in the proximal internal carotid artery Patient is now neurologically intact awake alert and oriented and asymptomatic For right carotid endarterectomy tomorrow I've discussed risks and benefits with the patient Objective: Vital Signs Date Time Temp Pulse Resp B/P Pulse Ox O2 Delivery O2 Flow Rate FiO2 04/20/17 12:00 97.0 65 18 146/68 97 04/20/17 08:39 53 04/20/17 08:38 97.2 58 18 130/72 97 04/20/17 04:00 97.2 52 20 113/60 98 04/20/17 02:19 51 04/19/17 22:40 97.5 63 20 136/81 97 04/19/17 19:52 96 04/19/17 16:00 97.3 63 18 142/81 96 Result Diagram: 04/18/17 0610 04/18/17 0610 Karli Sebastian MD April 20, 2017 15:12
[2017-04-20] MEDS ORDERED: ceFAZolin 2 GM PREMIX 50 ML IV SCH (15:15)
[2017-04-20] MEDS ORDERED: SODIUM CHLORID 0.9% 500 ML IV PRN (19:15)
[2017-04-20] MEDS ORDERED: METOPROLOL TARTRATE 25 MG TAB PO PRN (19:15)
[2017-04-20] MEDS ORDERED: POVIDONE IODINE 5% (ANTISEPSIS KIT) 4 APPLICATIONS EACH NARE PRN (19:15)
[2017-04-20] MEDS ORDERED: INSULIN HUMAN REGULAR 1,000 UNITS/10 ML VIAL SQ PRN (19:15)
[2017-04-20] MEDS ORDERED: CHLORHEXIDINE GLUCONATE 2 % 1 PACK (2 CLOTHS) TOPICAL PRN (19:15)
[2017-04-20] MEDS ORDERED: LACTATED RINGER'S 1000 ML IV PRN (19:15)
[2017-04-20] MEDS: ATORVASTATIN 10 MG TAB PO SCH (19:40)
[2017-04-21] VITALS (9 sets, daily range): BP systolic 112–171; BP diastolic 60–92; PULSE 60–85; RESP 18–20; TEMP 96.9–98.6; O2SAT 97–99
[2017-04-21] MEDS: HEPARIN SODIUM - SQ 10,000 UNITS/ML VIAL SQ SCH (06:00)
[2017-04-21] MEDS: LEVOTHYROXINE SODIUM 25 MCG TAB PO SCH (06:10)
[2017-04-21] MEDS: ASPIRIN 325 MG TAB PO SCH (09:00)
[2017-04-21] MEDS: SODIUM CHLORIDE 0.9% FLUSH 10 ML FLUSH IV FLUSH SCH ×3 (09:00→23:04)
[2017-04-21] MEDS ORDERED: PROPOFOL 200 MG/20 ML AMP IV ONE (11:27)
[2017-04-21] MEDS ORDERED: PHENYLEPH/NS 1000 MCG/10 ML SYR IV ONE (11:28)
[2017-04-21] MEDS ORDERED: ONDANSETRON HCL 4 MG/2 ML VIAL IV PUSH ONE (11:28)
[2017-04-21] MEDS ORDERED: ePHEDrine/NS 25 MG/5 ML SYR IV ONE (11:28)
--- NOTE | 2017-04-21 13:25 | HHI.PR ---
Subjective Remarks Patient seen earlier on 11 AM. Awaiting for carotid endarterectomy today He reports he is feeling well. No lightheadedness, headache, or problems ambulating. Objective Vitals Vital Signs Date Time Temp Pulse Resp B/P Pulse Ox O2 Delivery O2 Flow Rate FiO2 04/21/17 12:14 96.9 62 19 137/73 99 04/21/17 10:27 64 04/21/17 08:54 97.2 66 19 124/73 98 04/21/17 04:30 98.0 69 20 112/70 97 04/21/17 00:00 98.1 64 20 115/60 98 04/20/17 20:45 97.3 65 18 114/64 97 04/20/17 16:21 97.8 66 18 111/68 97 I/O 04/20/17 04/20/17 04/20/17 04/21/17 04/21/17 04/21/17 07:00 15:00 23:00 07:00 15:00 23:00 Intake Total 120 ml 420 ml 100 ml Balance 120 ml 420 ml 100 ml Intake Oral 120 ml 420 ml 100 ml # Voids 2 3 2 # Bowel Movements 0 1 0 Result Diagram: 04/18/17 0610 04/18/17 0610 Objective Remarks GENERAL: This is a well-nourished, well-developed patient, in no apparent distress. CARDIOVASCULAR: Normal rate and regular rhythm without murmurs, gallops, or rubs. RESPIRATORY: Good respiratory efforts. Breath sounds equal and clear to auscultation bilaterally. GASTROINTESTINAL: Abdomen soft, non-tender, non-distended. Normal active bowel sounds MUSCULOSKELETAL: Extremities without cyanosis, or edema. NEURO: Alert & Oriented x4 to person, place, time, situation. Moves all ext x4 PSYCH: Appropriate mood and affect. A/P Problem List: (1) Acute onset of severe vertigo ICD Code: R42 Status: Acute (2) Hypertension ICD Code: I10 Status: Acute (3) Carotid stenosis, bilateral ICD Code: I65.23 Status: Acute (4) Dizziness ICD Code: R42 Status: Acute Assessment and Plan 76-year-old male with symptomatic carotid artery stenosis. Patient presented with probable TIA, dizziness and disequilibrium. Dizziness, disequilibrium A patient with known history of previous CVA. CT of the brain did not show any acute abnormality. MRI and MRA of the brain were unremarkable. Carotid ultrasound indicated 5069 percent bilateral internal carotid stenosis. MRA of the carotids indicated 60% stenosis of the right internal carotid with irregularity and deep plaque ulceration; Smooth stenosis of the left internal carotid artery at 4050%. MRI cervical spine with multilevel disc bulges/ protrusions. Echocardiogram indicates normal systolic function, ejection fraction 55-60%. Further laboratory studies to include B12, folate, sedimentation rate, TSH were unremarkable. Lipid panel indicates LDL 74. Appreciate neurology consult. - Appreciate vascular surgery following. Plan for carotid endarterectomy today - Continue aspirin for now. Plavix on hold. Plan to discharge the patient on Plavix and discontinue aspirin when cleared by surgery. - [facility] A [facility]. Hypertension: Patient has been on lisinopril outpatient. This medication has been held since admission for permissive hypertension. His blood pressure has remained normal without any medications. We will continue to monitor. Discussed with patient that we may need to hold this medication on discharge and he can follow-up outpatient with his primary care physician for blood pressure monitoring and medications if indicated. - telemetry. Hypothyroidism TSH normal. - Resumed replacement therapy. DVT prevention: Sequential compression devices Discharge Planning OR today. Problem Qualifiers (1) Hypertension: Qualified Code: I15.9 - Secondary hypertension Sid Lamar MD April 21, 2017 13:25
[2017-04-21] MEDS ORDERED: PROTAMINE SULFATE 50 MG/5 ML VIAL ONE (13:29)
[2017-04-21] MEDS ORDERED: HEPARIN SODIUM - IV 10,000 UNITS/10 ML VIAL ONE (13:29)
[2017-04-21] MEDS ORDERED: LIDOCAINE HCL 1% 50 ML VIAL ONE (13:30)
[2017-04-21] MEDS ORDERED: fentaNYL CITRATE 250 MCG/5 ML AMP ONE (15:57)
[2017-04-21] MEDS ORDERED: SUGAMMADEX SODIUM 200 MG/2 ML VIAL IV PUSH ONE ×2 (15:57)
[2017-04-21] MEDS ORDERED: *morphine SULFATE 8 MG/ML PERIprocedure ONLY ONE ×2 (16:36→16:59)
[2017-04-21] MEDS ORDERED: SODIUM CHLOR 0.9% 1000 ML INJ 1,000 ML IV SCH (16:43)
[2017-04-21] MEDS ORDERED: Post-op Orders (for Pharmacy) MISC XX ONE (16:45)
[2017-04-21] MEDS ORDERED: MORPHINE SULFATE 4 MG/ML INJ IV PUSH PRN (16:45)
[2017-04-21] MEDS ORDERED: SODIUM CHLORIDE 0.9% FLUSH 10 ML FLUSH IV FLUSH PRN (16:45)
[2017-04-21] MEDS ORDERED: oxyCODONE/ACETAMINOPHEN 5 MG/325 MG TAB PO PRN (16:45)
[2017-04-21] MEDS ORDERED: NALOXONE HCL 0.4 MG/ML AMP IV PRN (16:45)
[2017-04-21] MEDS ORDERED: DO NOT ADM ANY ANTICOAGULANT DRUGS PRN (17:00)
[2017-04-21] MEDS ORDERED: NITROGLYCERIN-DEXTROSE INJ 250 ML ONE (17:15)
[2017-04-21] MEDS ORDERED: NITROGLYCERIN-DEXTROSE INJ 250 ML IV PRN ×2 (17:45→18:45)
[2017-04-21] MEDS ORDERED: PANTOPRAZOLE SOD 40 MG DELAYED RELEASE TAB PO SCH (18:00)
--- NOTE | 2017-04-21 18:07 | MP ---
cc: MD BLAIRE,COCO DATE OF SURGERY: 04/21/2017. PREOPERATIVE DIAGNOSIS: 1. Right internal carotid artery stenosis. 2. Ulcerated plaque with repeated TIAs. OPERATIVE PROCEDURE PERFORMED: Right carotid endarterectomy with patch angioplasty. SURGEON: Coco Sebastian M.D. ANESTHESIA: General. ESTIMATED BLOOD LOSS: 150 cc. DESCRIPTION OF THE PROCEDURE IN DETAIL: The patient was prepped and draped in the usual sterile fashion. A right pre-sternocleidomastoid incision was made and deepened to the platysma to the level of the carotid sheath. the common carotid, internal and external carotid artery isolated with sharp and blunt dissection and umbilical tape placed around each on a Rumel retractor. The patient was given 7000 units of heparin. Weitlaner and upper arm iron internal were placed. A DeBakey clamp was applied to the common carotid artery and a bulldog to the internal carotid artery. The vessel was opened longitudinally with Nolasco scissors and then an argyle shunt immediately positioned and blood flow reestablished. The entire procedure was monitored with prefrontal 02 monitoring. Now the carotid artery was inspected. The patient had a large plaque which extended from about an inch proximal to the bifurcation to about an inch into the bifurcation and into internal carotid artery. There was a large ulcerated plaque in the middle of this ulcer and there was some cheesy green material surrounding it. The plaque was now dissected in the media plane using [place] dissector and then the entire other sclerotic plaque was removed in one piece and submitted for pathology. It peeled off nicely in the internal carotid artery intima and this was checked. Small debris was now removed with heparin and saline and Rafat forceps as well as [place]. Once the carotid artery was nice and clean, an 8 mm x 6 cm bovine patch was used and it was sewn in with 6-0 Prolene. Prior to completion of the closure, the [place] shunt was removed and closure completed. Blood flow was then re-established in the usual order and fashion preventing embolization to the brain. The area was irrigated with copious amounts of saline. Meticulous hemostasis was obtained with a few more Prolene stitches for small bleeders. A piece of Surgicel was laid over the vessel. The patient was given 25 units of protamine and a #7 flat Josue-Spencer drain placed in the incision. The incision was closed with 2-0 Vicryl in layers and 4-0 Monocryl for the skin. Benzoin and Steri-Strips were applied. The patient tolerated the procedure well. At the end of the procedure, the patient was taken to the recovery room where he was awake, alert and neurologically fully intact. Coco CRAFT/HIRA /4:55 PM /5:57 PM
[2017-04-21] MEDS: CLOPIDOGREL 75 MG TAB PO SCH (23:03)
[2017-04-21] MEDS: ATORVASTATIN 10 MG TAB PO SCH (23:04)
[2017-04-22 03:00] VITALS: BP_SYST 109; BP_SYST 124; BP_DIAS 56; BP_DIAS 66; PULSE 71; RESP 18; TEMP 97.6; O2SAT 97
[2017-04-22 04:33] LABS: HEMATOCRIT 41.5 % (39.0-51.0); MEAN CELL VOLUME 89.8 FL (80.0-100.0); MEAN CORPUSCULAR HEMOGLOBIN 31.8 PG (27.0-34.0); MEAN CORPUSCULAR HGB CONC 35.4 % (32.0-36.0); PLATELET COUNT 178 TH/MM3 (150-450); RED BLOOD COUNT 4.62 MIL/MM3 (4.50-5.90); RED CELL DISTRIBUTION WIDTH 13.5 % (11.6-17.2); REVIEW FLAG FINAL; WHITE BLOOD COUNT 7.1 TH/MM3 (4.0-11.0)
[2017-04-22] MEDS: LEVOTHYROXINE SODIUM 25 MCG TAB PO SCH (06:20)
[2017-04-22 07:00] VITALS: PULSE 85
[2017-04-22 08:00] VITALS: BP_SYST 142; BP_SYST 143; BP_DIAS 65; BP_DIAS 66; PULSE 85; RESP 18; TEMP 98; O2SAT 97
[2017-04-22] MEDS: ASPIRIN 325 MG TAB PO SCH (08:39)
[2017-04-22] MEDS: SODIUM CHLORIDE 0.9% FLUSH 10 ML FLUSH IV FLUSH SCH ×2 (08:39)
[2017-04-22] MEDS: CLOPIDOGREL 75 MG TAB PO SCH (08:39)
[2017-04-22 10:00] VITALS: O2SAT 97
[2017-04-22 11:00] VITALS: PULSE 95
[2017-04-22 11:20] VITALS: BP 148/70; PULSE 85; RESP 18; TEMP 97.9; O2SAT 97
--- NOTE | 2017-04-22 11:42 | PD.CAR.PN ---
CVT Progress Note Subjective/Hospital Course: Patient with symptomatic right internal carotid artery stenosis several TIAs in last few weeks Carotid stenosis is only about 60-65% however it has a large ulcerated plaque is clearly the culprit in this patient's symptomatology Patient should be transferred to the main hospital and will undergo right carotid endarterectomy at this admission probably Sunday morning Full consult dictated Thanks J 04/20/17 Patients with symptomatic right internal carotid artery stenosis and an ulcerated plaque in the proximal internal carotid artery Patient is now neurologically intact awake alert and oriented and asymptomatic For right carotid endarterectomy tomorrow I've discussed risks and benefits with the patient 04/22/17 Vital signs stable patient is neurologically intact status post right carotid endarterectomy with patch Blood pressure stable and hypertension under control Incision clean and dry Plan DC GA May DC patient today from my point and patient can shower tomorrow and get incision wet Patient should be discharged on Plavix and will follow-up with my office in about 2 weeks Objective: Vital Signs Date Time Temp Pulse Resp B/P Pulse Ox O2 Delivery O2 Flow Rate FiO2 04/22/17 11:20 97.9 85 18 148/70 97 Arterial Line 04/22/17 11:00 95 04/22/17 10:00 97 21 04/22/17 08:00 98.0 85 18 142/66 97 143/65 04/22/17 07:00 85 04/22/17 03:00 71 04/22/17 03:00 97.6 71 18 109/66 97 124/56 04/21/17 23:00 98.6 76 18 126/68 97 132/61 04/21/17 23:00 76 04/21/17 21:38 97 Nasal Cannula 2.00 04/21/17 20:45 18 04/21/17 19:00 97.2 85 18 131/75 97 158/69 04/21/17 19:00 85 04/21/17 18:00 60 04/21/17 18:00 96.9 60 19 161/92 97 171/75 04/21/17 17:40 97.4 60 16 164/82 99 Nasal Cannula 2 176/74 04/21/17 17:30 54 16 99 Nasal Cannula 2 176/74 04/21/17 17:15 56 16 99 Nasal Cannula 2 184/76 04/21/17 17:00 57 16 173/91 99 Nasal Cannula 2 179/76 04/21/17 16:45 60 16 141/74 93 Nasal Cannula 2 158/70 04/21/17 16:30 59 16 93 Nasal Cannula 2 158/70 04/21/17 16:23 98.0 60 16 133/74 93 149/65 04/21/17 13:20 60 16 128/67 92 04/21/17 12:14 96.9 62 19 137/73 99 Labs: Laboratory Tests Test 04/22/17 03:42 White Blood Count 7.1 TH/MM3 (4.0-11.0) Red Blood Count 4.62 MIL/MM3 (4.50-5.90) Hemoglobin 14.7 GM/DL (13.0-17.0) Hematocrit 41.5 % (39.0-51.0) Mean Corpuscular Volume 89.8 FL (80.0-100.0) Mean Corpuscular Hemoglobin 31.8 PG (27.0-34.0) Mean Corpuscular Hemoglobin 35.4 % Concent (32.0-36.0) Red Cell Distribution Width 13.5 % (11.6-17.2) Platelet Count 178 TH/MM3 (150-450) Mean Platelet Volume 7.9 FL (7.0-11.0) Result Diagram: 04/22/17 0342 04/18/17 0610 Karli Sebastian MD April 22, 2017 11:42
[2017-04-22] MEDS ORDERED: ASPI81TA11 PO (14:41)
[2017-04-22] MEDS ORDERED: PLAV75TA29 PO (14:41)
[2017-04-22] MEDS ORDERED: LIPI10TA PO (14:41)
--- NOTE | 2017-04-26 07:42 | HHI.DS ---
Discharge Summary Admission Date April 20, 2017 at 11:48 Discharge Date: May 23, 2017 Admitting Diagnosis CVA (1) Acute onset of severe vertigo ICD Code: R42 (2) Hypertension ICD Code: I10 (3) Carotid stenosis, bilateral ICD Code: I65.23 (4) Dizziness ICD Code: R42 Procedures left carotid endarterectomy. Please see report. Brief History - From Admission Written by Anil Gallardo, acting as scribe for Dr. Damon on 04/17/17 at 15: 27. 76-year-old male with known history of hypertension, hypothyroidism, history of CVA who presented to hospital because of dizziness, disequilibrium. Patient indicates that his normal state of health this morning when he woke up at 6 AM. He went out as normal morning routine and took his blood pressure medication and thyroid medicine. He went to [employer] shop this morning at approximately 8 AM and on his way home he states that he started developing some mild dizziness so when he got home he checks his blood pressure and he has systolic blood pressure 160. With his blood pressure elevated he did take another pill of his blood pressure medication. He laid down and he thinks he took a nap. When he woke up it was hot in the room so he walked to the thermostat and he noticed that he had severe dizziness, had difficulty walking and ambulating. He went laid back down in bed and called his son who brought him to the hospital for evaluation. Patient does not know exactly what time he woke up from his nap. At the present time he denies any lightheadedness or dizziness. He denies any unilateral weakness, paresthesia, blurred vision, visual disturbances, difficulty eating or swallowing food. Patient had workup in the emergency department with CT scan of the brain which did not indicate any acute abnormality. It was recommended by ER physician and patient be observed in the hospital for further evaluation and management of possible stroke. CBC/BMP: 04/22/17 0342 Imaging Last Impressions Neck Magnetic Resonance Angiography 04/18/17 0000 Signed Impressions: Service Date/Time: Tuesday, April 18, 2017 13:58 - CONCLUSION: 60%% right carotid stenosis with irregularity and deep plaque ulceration. Smooth 40-50%% stenosis on the left. Jung Mckeon MD Cervical Spine MRI 04/18/17 Signed Impressions: Service Date/Time: Tuesday, April 18, 2017 13:58 - CONCLUSION: 1. Multilevel disc bulges/protrusions. 2. No canal stenosis. Flaco Jordan MD Carotid Artery Ultrasound 04/18/17 Signed Impressions: Service Date/Time: Tuesday, April 18, 2017 08:23 - CONCLUSION: There are 50-69%% stenoses within both internal carotid arteries. Flaco Jordan MD Head Magnetic Resonance Angiography 04/17/17 Signed Impressions: Service Date/Time: Monday, April 17, 2017 16:46 - CONCLUSION: No acute intracranial vascular abnormality is identified. Jung Grigsby MD Head CT 04/17/17 Signed Impressions: Service Date/Time: Monday, April 17, 2017 14:19 - CONCLUSION: 1. No acute intracranial abnormality is identified. 2. Stable chronic changes include mild cerebral atrophy and mild periventricular white matter low attenuation characteristic of chronic microvascular ischemia. Jung Grigsby MD Brain MRI 04/17/17 Signed Impressions: Service Date/Time: Monday, April 17, 2017 16:46 - CONCLUSION: 1. No acute intracranial abnormality is identified. There are no findings to indicate recent ischemia. 2. Chronic changes include mild cerebral atrophy and white matter changes bilaterally characteristic of chronic microvascular ischemia. Jung Grigsby MD PE at Discharge GENERAL: patient sitting up in chair at bedside. Appears comfortable. Alert and oriented 3. SKIN: Warm and dry.right neck surgical incision with Steri-Strips intact. HEAD: Normocephalic. EYES: No scleral icterus. No injection or drainage. NECK: Supple, trachea midline. No JVD or lymphadenopathy. CARDIOVASCULAR: Regular rate and rhythm without murmurs, gallops, or rubs. RESPIRATORY: Breath sounds equal bilaterally. No accessory muscle use. GASTROINTESTINAL: Abdomen soft, non-tender, nondistended. MUSCULOSKELETAL: No cyanosis, or edema. BACK: Nontender without obvious deformity. No CVA tenderness. Hospital Course 76-year-old male with symptomatic carotid artery stenosis. Patient presented with probable TIA, dizziness and disequilibrium. imaging performed as above. Patient underwent carotid endarterectomy. Recovering without issue. Patient feels well on day of discharge. Denies any lightheadedness or dizziness. Bubbly discharge home to follow up with vascular surgery as outpatient. For problem-based summary from most recent progress note, please see below. Dizziness, disequilibrium A patient with known history of previous CVA. CT of the brain did not show any acute abnormality. MRI and MRA of the brain were unremarkable. Carotid ultrasound indicated 5069 percent bilateral internal carotid stenosis. MRA of the carotids indicated 60% stenosis of the right internal carotid with irregularity and deep plaque ulceration; Smooth stenosis of the left internal carotid artery at 4050%. MRI cervical spine with multilevel disc bulges/ protrusions. Echocardiogram indicates normal systolic function, ejection fraction 55-60%. Further laboratory studies to include B12, folate, sedimentation rate, TSH were unremarkable. Lipid panel indicates LDL 74. Appreciate neurology consult. - Appreciate vascular surgery following. Plan for carotid endarterectomy today - Continue aspirin for now. Plavix on hold. Plan to discharge the patient on Plavix and discontinue aspirin when cleared by surgery. - [facility] for A fib. Hypertension: Patient has been on lisinopril outpatient. This medication has been held since admission for permissive hypertension. His blood pressure has remained normal without any medications. We will continue to monitor. Discussed with patient that we may need to hold this medication on discharge and he can follow-up outpatient with his primary care physician for blood pressure monitoring and medications if indicated. - telemetry. Hypothyroidism TSH normal. - Resumed replacement therapy. DVT prevention: Sequential compression devices Pt Condition on Discharge: Good Discharge Disposition: Discharge Home Discharge Time: <= 30 minutes Discharge Instructions DIET: Follow Instructions for: Heart Healthy Diet Activities you can perform: Regular-No Restrictions, See Additionl Instruction Follow up Referrals: Neurology - 2 Weeks with Artemio Valdez PhD PCP Follow-up - 1 Week Vascular Surgery - 2 Weeks with Karli Sebastian MD New Medications: Aspirin DR (Aspirin EC) 81 Mg Tabdr 81 MG PO DAILY prevent stroke #30 Ref 0 TAB Atorvastatin (Lipitor) 10 Mg Tab 10 MG PO HS cholesterol Days 30 TAB Clopidogrel (Plavix) 75 Mg Tab 75 MG PO DAILY prevent stroke Days 30 TAB Continued Medications: Levothyroxine (Levothyroxine) 25 Mcg Tab Unknown Dose PO DAILY Thyroid #30 Ref 0 TAB Discontinued Medications: Aspirin (Aspirin) 325 Mg Tab 325 MG PO DAILY #30 Ref 0 TAB Lisinopril (Lisinopril) 10 Mg Tab 10 MG PO DAILY #30 Ref 0 TAB Mehul Zamorano MD Apr 26, 2017 07:42
== END 2017-04-22 15:25 | disposition home or self-care (01) | DRG 39 ==
LOC: PHED 14:00 → PHEDA 15:23 → PH3B 17:28 → N05A 04-19 22:45 → OBSVTOIN 04-20 11:48 → HCVR 04-21 17:55
PROVIDERS: ADMIT Internal Medicine; ATTEND Internal Medicine
PROC: 03UK0KZ Supplement Right Internal Carotid Artery with Nonautologous Tissue Substitute, Open Approach (ICD-10-PCS; 2017-04-21)
PROC: 03CK0Z6 (ICD-10-PCS; principal; 2017-04-21 13:50)
DX: I65.23 Occlusion and stenosis of bilateral carotid arteries (principal); R00.1 Bradycardia, unspecified; I10 Essential (primary) hypertension; E78.5 Hyperlipidemia, unspecified; E03.9 Hypothyroidism, unspecified; M47.812 Spondylosis without myelopathy or radiculopathy, cervical region; Z86.73 Personal history of transient ischemic attack (TIA), and cerebral infarction without residual deficits; Z87.891 Personal history of nicotine dependence; Z96.642 Presence of left artificial hip joint
CPT/HCPCS: 70450; 70544; 70548; 70551; 72141; 80048; 80053; 80061; 80307; 81001; 82550; 82607; 82746; 83036; 84443; 84484; 85025; 85027; 85384; 85610; 85652; 85730; 86592; 86850; 86900; 86901; 86920; 88304; 88305; 93005; 93306; 93880; 94150; 96360; 96372; A9579; C1768; G0378; G8987-GO; G8987-GP; G8988-GO; G8988-GP; J0690; J1644; J2270; J2370; J2405; J2720; J3010; J7030; J7120

== ENCOUNTER 2018-01-02 17:34 | Observation (INO) | payer MEDICARE, OTHER ==
[~2018-01-02] VITALS: Ht 182.9 cm; Wt 82.8 kg
[~2018-01-02 17:34] MED LIST changes: -ASPI325T PO; +ASPI81TA23 PO; +LEVO25TA4 PO; +LIPI10TA PO; -LISI10 PO; +PLAV75TA29 PO; -VIAG25TA PO
[2018-01-02] MEDS ORDERED: SODIUM CHLOR 0.9% 1000 ML INJ 1,000 ML IV ONE (17:40)
[2018-01-02 17:43] VITALS: BP 179/93; PULSE 96; RESP 18; TEMP 98.5; O2SAT 96
[2018-01-02 17:50] VITALS: O2SAT 96
[2018-01-02] MEDS ORDERED: LISI10TA3 PO (17:53)
[2018-01-02] MEDS ORDERED: ASPI-183 PO (17:53)
--- NOTE | 2018-01-02 17:57 | RADRPT ---
EXAM DATE/TIME: 01/02/2018 17:49 [facility] COMPARISON: CHEST SINGLE AP, October 07, 2015, 8:30. INDICATIONS : Dizziness starting today MEDICAL HISTORY : Hypertension. SURGICAL HISTORY : None. ENCOUNTER: Initial ACUITY: 1 day PAIN SCORE: 0/10 LOCATION: Bilateral chest FINDINGS: A single view of the chest demonstrates the lungs to be symmetrically aerated without evidence of mas s, infiltrate or effusion. The cardiomediastinal contours are unremarkable. Osseous structures are intact. CONCLUSION: No acute disease. No significant change has occurred. Caleb Perez MD on January 02, 2018 at 17:54 Board Certified Radiologist. This report was verified electronically.
--- NOTE | 2018-01-02 18:15 | RADRPT ---
EXAM DATE/TIME: 01/02/2018 17:54 [facility] COMPARISON: CT BRAIN W/O CONTRAST, April 17, 2017, 14:19. INDICATIONS : Dizziness. RADIATION DOSE: 63.89 CTDIvol (mGy) MEDICAL HISTORY : Hypertension. Cardiovascular disease SURGICAL HISTORY : None. ENCOUNTER: Initial ACUITY: 1 day PAIN SCALE: 0/10 LOCATION: cranial TECHNIQUE: Multiple contiguous axial images were obtained of the head. Using automated exposure control and adj ustment of the mA and/or kV according to patient size, radiation dose was kept as low as reasonably a chievable to obtain optimal diagnostic quality images. DICOM format image data is available electro nically for review and comparison. FINDINGS: CEREBRUM: The ventricles are normal for age. Stable chronic white matter changes. No evidence of midline shift, mass lesion, hemorrhage or acute infarction. No extra-axial fluid collections are seen. POSTERIOR FOSSA: The cerebellum and brainstem are intact. The 4th ventricle is midline. The cerebellopontine angle i s unremarkable. EXTRACRANIAL: The visualized portion of the orbits is intact. SKULL: The calvaria is intact. No evidence of skull fracture. CONCLUSION: Unremarkable and stable CT scan of the brain for patient's age. No new or significant changes. Caleb Perez MD on January 02, 2018 at 18:12 Board Certified Radiologist. This report was verified electronically.
[2018-01-02 18:29] LABS: AUTOMATED NEUTROPHIL # 4.1 TH/MM3 (1.8-7.7); BASOPHIL # 0.1 TH/MM3 (0-0.2); EOSINOPHIL # 0.3 TH/MM3 (0-0.4); EOSINOPHIL % 5.2 % (0.0-4.0); HEMATOCRIT 45.9 % (39.0-51.0); HEMOGLOBIN 15.2 GM/DL (13.0-17.0); LYMPH % 17.7 % (9.0-44.0); LYMPHOCYTE # 1.1 TH/MM3 (1.0-4.8); MEAN CELL VOLUME 92.5 FL (80.0-100.0); MEAN CORPUSCULAR HEMOGLOBIN 30.6 PG (27.0-34.0); MEAN CORPUSCULAR HGB CONC 33.1 % (32.0-36.0); MEAN PLATELET VOLUME 7.5 FL (7.0-11.0); MONO % 7.1 % (0.0-8.0); MONOCYTE # 0.4 TH/MM3 (0-0.9); PLATELET COUNT 188 TH/MM3 (150-450); RED BLOOD COUNT 4.96 MIL/MM3 (4.50-5.90); RED CELL DISTRIBUTION WIDTH 12.8 % (11.6-17.2)
--- NOTE | 2018-01-02 18:33 | PD ---
HPI Chief Complaint: Dizziness Time Seen by Provider: 17:40 Travel History International Travel<30 days: No Contact w/Intl Traveler<30days: No Traveled to known affect area: No History of Present Illness HPI 77 y/o male presents with difficulty with his memory over the past couple of weeks. He states early this morning he developed numbness to his right arm. He states then later in the day he started to feel dizzy. He states he has history of stroke and takes a full aspirin because the blood thinner that he was on before gave him about side effect. He states he feels worse when he moves around. He denies other modifying factors. He denies any other concurrent complaints. Quality is spinning. Severity is intermittent. He notes taking a full aspirin today. PFSH Past Medical History Hx Anticoagulant Therapy: Yes (ASA 325 mg daily) Cancer: No Cardiovascular Problems: Yes Cerebrovascular Accident: Yes Diminished Hearing: Yes (HEARING AIDS) Endocrine: No Gastrointestinal Disorders: Yes (POLYP REMOVAL AND HEMROIDECTOMY LAST YEAR) Genitourinary: No Hypertension: Yes Immune Disorder: No Implanted Vascular Access Dvce: Yes Musculoskeletal: No Psychiatric: No Reproductive: No Respiratory: No Thyroid Disease: Yes Past Surgical History Body Medical Devices: PT HAS PLATE IN L HIP Other Surgery: Yes (HEMORRHOIDECTOMY) Social History Alcohol Use: Yes (1 BEER THE PAST 4 WEEKS) Tobacco Use: Yes (h.o, quit) Substance Use: No Allergies-Medications (Allergen,Severity, Reaction): Coded Allergies: No Known Allergies (Verified Adverse Reaction, Unknown, 01/02/18) Reported Meds & Prescriptions Reported Meds & Active Scripts Active Lipitor (Atorvastatin Calcium) 10 Mg Tab 10 Mg PO HS 30 Days Reported Lisinopril 10 Mg Tab 10 Mg PO DAILY Aspirin 325 Mg Tab 325 Mg PO DAILY Levothyroxine (Levothyroxine Sodium) 25 Mcg Tab Unknown Dose PO DAILY Review of Systems Except as stated in HPI: all other systems reviewed are Neg Physical Exam Narrative GENERAL: No apparent distress SKIN: Focused skin assessment warm/dry. HEAD: Atraumatic. Normocephalic. EYES: Pupils equal and round. No scleral icterus. No injection or drainage. ENT: No nasal bleeding or discharge. Mucous membranes pink and moist. NECK: Trachea midline. No JVD. CARDIOVASCULAR: Regular rate and rhythm. RESPIRATORY: No accessory muscle use. Clear to auscultation. Breath sounds equal bilaterally. GASTROINTESTINAL: Abdomen soft, non-tender, nondistended. MUSCULOSKELETAL: No obvious deformities. No clubbing. No cyanosis. No edema. NEUROLOGICAL: Awake and alert. No obvious cranial nerve deficits. Motor grossly within normal limits. Normal speech. No pronator drift, equal grasp bilaterally PSYCHIATRIC: Appropriate mood and affect; insight and judgment normal. Data Data Last Documented VS Vital Signs Date Time Temp Pulse Resp B/P (MAP) Pulse Ox O2 Delivery O2 Flow Rate FiO2 01/02/18 18:51 70 16 141/76 (97) 97 Room Air 01/02/18 17:43 98.5 Orders Orders Nursing Bedside Swallow Assess .ONCE (01/02/18 17:40) Activity Bed Rest (01/02/18 17:40) Prothrombin Time / Inr (Pt) (01/02/18 17:40) Act Partial Throm Time (Ptt) (01/02/18 17:40) Complete Blood Count With Diff (01/02/18 17:40) Basic Metabolic Panel (Bmp) (01/02/18 17:40) Creatine Kinase (Cpk) (01/02/18 17:40) Troponin I (01/02/18 17:40) Ua Includes Microscopic (01/02/18 17:40) Type And Screen (01/02/18 17:40) Ct Brain W/O Iv Contrast(Rout) (01/02/18 ) Chest, Single Ap (01/02/18 ) Electrocardiogram (01/02/18 ) Sodium Chlor 0.9% 1000 Ml Inj (Ns 1000 M (01/02/18 17:40) Ecg Monitoring (01/02/18 17:40) Iv Access Insert/Monitor (01/02/18 17:40) NPO (01/02/18 17:40) Oximetry (01/02/18 17:40) Admit Order (Ed Use Only) (01/02/18 19:22) Labs Laboratory Tests Test 01/02/18 18:12 White Blood Count 6.0 TH/MM3 Red Blood Count 4.96 MIL/MM3 Hemoglobin 15.2 GM/DL Hematocrit 45.9 % Mean Corpuscular Volume 92.5 FL Mean Corpuscular Hemoglobin 30.6 PG Mean Corpuscular Hemoglobin Concent 33.1 % Red Cell Distribution Width 12.8 % Platelet Count 188 TH/MM3 Mean Platelet Volume 7.5 FL Neutrophils (%) (Auto) 69.0 % Lymphocytes (%) (Auto) 17.7 % Monocytes (%) (Auto) 7.1 % Eosinophils (%) (Auto) 5.2 % Basophils (%) (Auto) 1.0 % Neutrophils # (Auto) 4.1 TH/MM3 Lymphocytes # (Auto) 1.1 TH/MM3 Monocytes # (Auto) 0.4 TH/MM3 Eosinophils # (Auto) 0.3 TH/MM3 Basophils # (Auto) 0.1 TH/MM3 CBC Comment DIFF FINAL Differential Comment Prothrombin Time 10.1 SEC Prothromb Time International Ratio 1.0 RATIO Activated Partial Thromboplast Time 19.1 SEC Blood Urea Nitrogen 21 MG/DL Creatinine 0.90 MG/DL Random Glucose 116 MG/DL Calcium Level 8.6 MG/DL Sodium Level 134 MEQ/L Potassium Level 3.9 MEQ/L Chloride Level 104 MEQ/L Carbon Dioxide Level 22.9 MEQ/L Anion Gap 7 MEQ/L Estimat Glomerular Filtration Rate 82 ML/MIN Total Creatine Kinase 81 U/L Troponin I LESS THAN 0.02 NG/ML MDM Medical Decision Making Medical Screen Exam Complete: Yes Emergency Medical Condition: Yes Medical Record Reviewed: Yes (past history confirmed) Interpretation(s) CBC & BMP Diagram 01/02/18 18:12 Calcium Level 8.6 Last [address] 01/02/18 0000 Signed Impressions: Service Date/Time: Tuesday, January 02, 2018 17:54 - CONCLUSION: Unremarkable and stable CT scan of the brain for patient's age. No new or significant changes. Caleb Perez MD Chest X-Ray 01/02/18 0000 Signed Impressions: Service Date/Time: Tuesday, January 02, 2018 17:49 - CONCLUSION: No acute disease. No significant change has occurred. Caleb Perez MD Differential Diagnosis Stroke, TIA, anemia, bleed Narrative Course we will check blood work, chest x-ray, CT brain injury evaluate. ed workup no emergent process, Already took aspirin, given prior history he will need to be admitted for further care Physician Communication Physician Communication midlevel with dr adam agrees to admit Diagnosis Primary Impression: Dizziness Admitting Information Admitting Physician Requests: Observation Teresa Marte MD Jan 02, 2018 18:33
[2018-01-02 18:44] LABS: CHLORIDE 104 MEQ/L (98-107); SODIUM (NA) 134 MEQ/L (136-145)
[2018-01-02 18:47] LABS: CALCIUM 8.6 MG/DL (8.5-10.1)
[2018-01-02 18:48] LABS: BICARBONATE 22.9 MEQ/L (21.0-32.0); BLOOD UREA NITROGEN 21 MG/DL (7-18); GLUCOSE,RANDOM 116 MG/DL (74-106)
[2018-01-02 18:49] LABS: PROTHROMBIN TIME - PATIENT 10.1 SEC (9.8-11.6)
[2018-01-02 18:51] VITALS: BP 141/76; PULSE 70; RESP 16; O2SAT 97
[2018-01-02 18:51] LABS: GLOMERULAR FILTRATION RATE 82 ML/MIN (>89)
[2018-01-02 18:56] LABS: TROPONIN I LESS THAN 0.02 NG/ML (0.02-0.05)
[2018-01-02] MEDS ORDERED: HEPARIN SODIUM - SQ 10,000 UNITS/ML VIAL SQ SCH (19:30)
[2018-01-02] MEDS ORDERED: GLUCAGON 1 MG/ML VIAL OTHER PRN (19:30)
[2018-01-02] MEDS ORDERED: SODIUM CHLORIDE 0.9% FLUSH 10 ML FLUSH IV FLUSH PRN (19:30)
[2018-01-02] MEDS ORDERED: DEXTROSE 50% IN WATER 50 ML VIAL(D50) IV PUSH PRN (19:30)
[2018-01-02 21:00] VITALS: PULSE 61
[2018-01-02] MEDS ORDERED: ATORVASTATIN 10 MG TAB PO SCH (21:00)
[2018-01-02] MEDS: INSULIN ASPART SUPPLEMENTAL SCALE SQ SCH (21:00)
[2018-01-02 21:06] VITALS: BP 146/83; PULSE 60; RESP 20; TEMP 96.7; O2SAT 97
[2018-01-02 21:17] LABS: BILIRUBIN, URINE NEG (NEG); BLOOD, URINE NEG (NEG); GLUCOSE,URINE NEG (NEG); KETONE, URINE TRACE mg/dL (NEG); NITRITE,URINE NEG (NEG); URINE LEUKOCYTE ESTERASE NEG (NEG)
[2018-01-02 21:20] LABS: URINE COLOR YELLOW (YELLW/STRAW)
[2018-01-02 21:21] LABS: RBC, URINE 0-2 /hpf (0-3); SQUAMOUS EPITHELIAL CELL URINE 0-5 /hpf (0-5); WBC, URINE 0-2 /hpf (0-5)
[2018-01-02] MEDS: SODIUM CHLORIDE 0.9% FLUSH 10 ML FLUSH IV FLUSH SCH (22:32)
[2018-01-03] VITALS: BP 133/80; PULSE 60; RESP 20; TEMP 96.6; O2SAT 99
[2018-01-03 04:00] VITALS: BP 151/87; PULSE 66; RESP 18; TEMP 96.9; O2SAT 96
[2018-01-03 07:09] LABS: AUTOMATED NEUTROPHIL # 4.3 TH/MM3 (1.8-7.7); BASOPHIL % 0.4 % (0.0-2.0); EOSINOPHIL # 0.4 TH/MM3 (0-0.4); EOSINOPHIL % 5.7 % (0.0-4.0); HEMATOCRIT 46.4 % (39.0-51.0); HEMOGLOBIN 15.5 GM/DL (13.0-17.0); LYMPH % 19.5 % (9.0-44.0); LYMPHOCYTE # 1.3 TH/MM3 (1.0-4.8); MEAN CELL VOLUME 92.9 FL (80.0-100.0); MEAN CORPUSCULAR HEMOGLOBIN 31.1 PG (27.0-34.0); MEAN CORPUSCULAR HGB CONC 33.5 % (32.0-36.0); MEAN PLATELET VOLUME 7.6 FL (7.0-11.0); MONO % 9.3 % (0.0-8.0); MONOCYTE # 0.6 TH/MM3 (0-0.9); NEUT % 65.1 % (16.0-70.0); PLATELET COUNT 209 TH/MM3 (150-450); RED CELL DISTRIBUTION WIDTH 12.6 % (11.6-17.2); WHITE BLOOD COUNT 6.6 TH/MM3 (4.0-11.0)
[2018-01-03 07:31] LABS: CALCIUM 8.5 MG/DL (8.5-10.1)
[2018-01-03 07:35] LABS: CREATININE 0.89 MG/DL (0.60-1.30)
[2018-01-03 08:00] VITALS: BP 147/86; PULSE 67; RESP 18; TEMP 97.2; O2SAT 97
[2018-01-03] MEDS: INSULIN ASPART SUPPLEMENTAL SCALE SQ SCH ×2 (08:00→12:00)
[2018-01-03 08:11] VITALS: PULSE 72
[2018-01-03] MEDS: SODIUM CHLORIDE 0.9% FLUSH 10 ML FLUSH IV FLUSH SCH (08:50)
[2018-01-03] MEDS ORDERED: ASPIRIN 325 MG TAB PO SCH ×2 (09:00)
--- NOTE | 2018-01-03 10:13 | RADRPT ---
EXAM DATE/TIME: 01/03/2018 08:21 [facility] COMPARISON: US CAROTID ARTERIES, April 18, 2017, 8:23. EXTERNAL COMPARISON : Ace Nicolas, CTA Carotid, August 17, 2017 INDICATIONS : Transient ischemic attack. MEDICAL HISTORY : Hypertension. CVA. SURGICAL HISTORY : Hemorrhoidectomy. Right carotid endarterectomy. Polyp removed. Left hip repair. ENCOUNTER: Subsequent ACUITY: 7-11 months PAIN SCORE: 0/10 LOCATION: Bilateral neck PEAK SYSTOLIC VELOCITIES (cm/sec): ICA/CCA RATIO: Right: 1.4 Left: 1.8 ICA: Right: 108 Left: 131 CCA: Right: 77 Left: 74 ECA: Right: 127 Left: 93 VERTEBRAL: Right: 47 antegrade Left: 49 antegrade Elevated flow velocities and ICA/CCA ratios have been found to correlate with increased degrees of vessel stenosis, calculated as percentage of diameter relative to a normal segment of distal ICA/CCA FINDINGS: RIGHT CAROTID: No significant stenosis is visualized. There are post endarterectomy changes. The waveforms are with in normal limits. LEFT CAROTID: There is moderate atherosclerotic plaquing at the bifurcation. The waveforms are within normal limits . VERTEBRAL ARTERIES: Antegrade flow is seen in both vertebral arteries. MISCELLANEOUS: None. CONCLUSION: 1. Right carotid: 2. Post endarterectomy changes. No hemodynamically significant carotid artery stenosis identified. 3. 4. Left carotid: 5. Moderate atherosclerotic plaquing at the bifurcation. There is both hard and soft plaque present. There is mild elevation of the velocity ratio suggesting stenosis of less than 50%. 6. Antegrade flow in both vertebral arteries. Carter Estrada MD on January 03, 2018 at 10:09 Board Certified Radiologist. This report was verified electronically.
--- NOTE | 2018-01-03 10:17 | RADRPT ---
EXAM DATE/TIME: 01/03/2018 09:40 [facility] COMPARISON: MRI CERVICAL SPINE W/O CONTRAST, April 18, 2017, 13:58. MRI BRAIN W/O CONTRAST, April 17, 2017, 16:46. INDICATIONS : CVA. Right sided weakness. MEDICAL HISTORY : Stroke SURGICAL HISTORY : Hemorrhoidectomy. Left hip surgery. ENCOUNTER: Initial ACUITY: 2 day PAIN SCORE: 0/10 LOCATION: Head. TECHNIQUE: Multiplanar, multisequence MRI of the brain was performed without contrast. FINDINGS: CEREBRUM: The ventricles are normal for age. No evidence of midline shift, mass lesion, hemorrhage or acute in farction. No extraaxial fluid collections are seen. The pituitary gland and suprasellar cistern are normal in configuration. WHITE MATTER: There are scattered areas of increased T2 signal in the white matter most consistent with moderate mi crovascular ischemic demyelinative change. No significant signal abnormalities are seen in the white matter. POSTERIOR FOSSA: The cerebellum and brainstem are intact. The 4th ventricle is midline. The cerebellopontine angle is unremarkable. The cerebellar tonsils are normal in position. DIFFUSION IMAGING: No focal areas of restricted diffusion are seen. No evidence of acute infarction. EXTRACRANIAL: The visualized portions of the orbits and paranasal sinuses are unremarkable. CONCLUSION: 1. Scattered areas of increased T2 signal in the white matter most consistent with moderate microvasc ular ischemic demyelinative change. Changes are stable compared to prior exam. 2. No acute intracranial adenopathy identified. No acute cortical infarction evident. Carter Estrada MD on January 03, 2018 at 10:12 Board Certified Radiologist. This report was verified electronically.
--- NOTE | 2018-01-03 10:20 | RADRPT ---
EXAM DATE/TIME: 01/03/2018 09:40 [facility] COMPARISON: MRI BRAIN W/O CONTRAST, January 03, 2018, 9:40. INDICATIONS : CVA. Right arm weakness. MEDICAL HISTORY : Stroke SURGICAL HISTORY : Hemorrhoidectomy. Left hip surgery. ENCOUNTER: Initial ACUITY: 2 day PAIN SCORE: 0/10 LOCATION: Head. Please note a normal MRA of the brain does not entirely exclude the possibility of a small aneurysm, nor the possibility of distal intracranial vessel disease. TECHNIQUE: 3D time of flight MRA was performed. Source images, multiplanar STS MIP, and 3D volume MIP reconstru ctions were reviewed. FINDINGS: There is excellent visualization of the major intracranial arteries out to the second-order branch ve ssels. There is no evidence for aneurysm, vessel truncation or stenosis, and no evidence for vascula r malformation. CONCLUSION: Normal examination. Jung Mckeon MD on January 03, 2018 at 10:08 Board Certified Radiologist. This report was verified electronically.
[2018-01-03 10:48] LABS: CHOLESTEROL/ HDL RATIO 2.28 RATIO; HDL CHOLESTEROL 59.9 MG/DL (40.0-60.0)
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
--- NOTE | 2018-01-03 11:02 | ECHRPT ---
Indication: CONCLUSIONS Normal left ventricular size. Wall thickness is measured at the upper limits of normal. The left ventricular systolic function is normal with an estimated ejection fraction in the range of 55-60%. Trace mitral valve regurgitation. Aortic valve sclerosis is present. Trace aortic valve regurgitation. The pulmonary valve is not well visualized. BP: / HR: Rhythm: MEASUREMENTS (Male / Female) Normal Values Technical Quality:Good 2D ECHO LV Diastolic Diameter PLAX 4.2 cm 4.2 - 5.9 / 3.9 - 5.3 cm LV Systolic Diameter PLAX 3.2 cm IVS Diastolic Thickness 1.0 cm 0.6 - 1.0 / 0.6 - 0.9 cm LVPW Diastolic Thickness 0.8 cm 0.6 - 1.0 / 0.6 - 0.9 cm LV Relative Wall Thickness 0.4 RV Internal Dim ED PLAX 1.9 cm LA Systolic Diameter LX 3.9 cm 3.0 - 4.0 / 2.7 - 3.8 cm DOPPLER Mitral E Point Velocity 41.0 cm/s Mitral A Point Velocity 83.4 cm/s Mitral E to A Ratio 0.5 TR Peak Velocity 166.0 cm/s TR Peak Gradient 11.0 mmHg FINDINGS LEFT VENTRICLE Normal left ventricular size. Wall thickness is measured at the upper limits of normal. The left ventricular systolic function is normal with an estimated ejection fraction in the range of 55-60%. RIGHT VENTRICLE Normal right ventricular size and systolic function. LEFT ATRIUM The left atrial size is normal. RIGHT ATRIUM The right atrial size is normal. ATRIAL SEPTUM Normal atrial septal thickness without atrial level shunting by limited color doppler interrogation. AORTA The aortic root and proximal ascending aorta are normal in size on limited imaging. MITRAL VALVE Trace mitral valve regurgitation. AORTIC VALVE Aortic valve sclerosis is present. Trace aortic valve regurgitation. TRICUSPID VALVE Structurally normal tricuspid valve. No tricuspid valve stenosis or regurgitation. PULMONARY VALVE The pulmonary valve is not well visualized. VESSELS The inferior vena cava is normal in size. PERICARDIUM No pericardial effusion. Fer Zhao MD, FACC (Electronically Signed) Final Date:03 January 2018 11:01
[2018-01-03 12:00] VITALS: BP_SYST 123; BP_SYST 148; BP_SYST 156; BP_DIAS 101; BP_DIAS 85; BP_DIAS 87; PULSE 67; PULSE 70; PULSE 76; RESP 18; TEMP 97.4; O2SAT 96; O2SAT 97
[2018-01-03] MEDS ORDERED: LISI-519 PO (12:17)
--- NOTE | 2018-01-03 12:28 | HHI.DCPOC ---
Discharge Care Plan Diagnosis: (1) Orthostatic hypotension (2) Dizziness Additional Problems Goals to Promote Your Health * To prevent worsening of your condition and complications * To maintain your health at the optimal level Directions to Meet Your Goals Take your medications as prescribed Follow your dietary instruction Follow activity as directed Keep your appointments as scheduled Take your immunizations and boosters as scheduled If your symptoms worsen call your PCP, if no PCP go to Urgent Care Center or Emergency Room Smoking is Dangerous to Your Health. Avoid second hand smoke Call the 24-hour hour crisis hotline for domestic abuse at Marlen Villarreal MD Jan 03, 2018 12:28
--- NOTE | 2018-01-03 12:32 | HHI.DCPOC ---
Discharge Care Plan Diagnosis: (1) Dizziness (2) Orthostatic hypotension Goals to Promote Your Health * To prevent worsening of your condition and complications * To maintain your health at the optimal level Directions to Meet Your Goals Measure blood pressure standing up. Do not take blood pressure medications unless bridge pressure is greater than 140/80 while standing up. If the blood pressures greater than 140/80, take lisinopril 5 mg by mouth dose instead of your regular 10 mg by mouth. Hydrate yourself and drink plenty of water. Follow-up with PCP in one week. Return to ER if no improvement in symptoms. Take your medications as prescribed Follow your dietary instruction Follow activity as directed Keep your appointments as scheduled Take your immunizations and boosters as scheduled If your symptoms worsen call your PCP, if no PCP go to Urgent Care Center or Emergency Room Smoking is Dangerous to Your Health. Avoid second hand smoke Call the 24-hour hour crisis hotline for domestic abuse at Marlen Villarreal MD Jan 03, 2018 12:32
[2018-01-03 15:53] LABS: HEMOGLOBIN A1C 5.6 % (4.3-6.0)
--- NOTE | 2018-01-03 21:33 | EKG ---
Date Performed: 01/02/2018 Time Performed: 18:14:44 PTAGE: 77 years EKG: Sinus rhythm WITH OCCASIONAL VENTRICULAR PREMATURE COMPLEXES WITH OCCASIONAL SUPRAVENTRICULAR PREMATURE COMPLEXES LEFT ANTERIOR FASCICULAR BLOCK SINCE PRIOR TRACING PVC'S ARE NOW SEEN. ABNORMAL ECG PREVIOUS TRACING : 04/17/2017 14.00 DOCTOR: Fidencio Rust Interpretating Date/Time 01/03/2018 21:31:53
== END 2018-01-03 14:57 | disposition home or self-care (01) ==
LOC: PHED 17:34 → PHEDA 19:23 → PH3A 21:07
PROVIDERS: ADMIT Internal Medicine; ATTEND Internal Medicine
DX: R42 Dizziness and giddiness (principal); I95.1 Orthostatic hypotension; R20.0 Anesthesia of skin; I10 Essential (primary) hypertension; H91.90 Unspecified hearing loss, unspecified ear; R26.81 Unsteadiness on feet; E78.5 Hyperlipidemia, unspecified; E03.9 Hypothyroidism, unspecified; I44.4 Left anterior fascicular block; R53.1 Weakness; R79.89 Other specified abnormal findings of blood chemistry; R79.1 Abnormal coagulation profile; R94.31 Abnormal electrocardiogram [ECG] [EKG]; R09.89 Other specified symptoms and signs involving the circulatory and respiratory systems; I25.10 Atherosclerotic heart disease of native coronary artery without angina pectoris; Z86.73 Personal history of transient ischemic attack (TIA), and cerebral infarction without residual deficits; Z79.82 Long term (current) use of aspirin; Z87.891 Personal history of nicotine dependence; Z96.642 Presence of left artificial hip joint
CPT/HCPCS: 70450; 70544; 70551; 71045; 80048; 80061; 81001; 82550; 82948; 83036; 84484; 85025; 85610; 85730; 86850; 86900; 86901; 93005; 93306; 93880; 96360; 96361; 97161; 99285; G0378; G8987; G8988; J7030

== ENCOUNTER 2018-01-03 18:46 | Observation (INO) | payer MEDICARE, OTHER ==
[~2018-01-03] VITALS: Ht 182.9 cm; Wt 88.7 kg
[~2018-01-03 18:46] MED LIST changes: +ASPI-183 PO; -ASPI81TA23 PO; +LISI-519 PO; +LISI10TA3 PO; -PLAV75TA29 PO
[2018-01-03 18:56] VITALS: BP 161/108; PULSE 74; RESP 16; TEMP 97.6; O2SAT 98
[2018-01-03] MEDS ORDERED: SODIUM CHLORIDE 0.9% FLUSH 10 ML FLUSH IVF PRN (19:15)
--- NOTE | 2018-01-03 19:19 | PD ---
HPI Chief Complaint: Dizziness Time Seen by Provider: 19:06 Travel History International Travel<30 days: No Contact w/Intl Traveler<30days: No Traveled to known affect area: No History of Present Illness HPI 77-year-old male with history of CVA on full aspirin daily, here for evaluation of dizziness. The patient was admitted to the hospital yesterday with similar symptoms and had an extensive workup and was discharged today at around 3:00 PM. He states that he felt well when he was discharged, however when he went home and sat on his chair to watch TV began to feel dizzy again. He describes more of a lightheadedness feeling. There are no modifying factors. He is complaining of some tingling sensation in his bilateral feet and toes. No motor deficits. No fevers or recent illness. No chest pain or dyspnea. No headache. No visual changes. Chart reviewed from yesterday's admission shows that the patient had normal MRA brain, brain MRI that showed scattered areas of increased T2 signal in the white matter most consistent with moderate microvascular ischemic demyelinative change which are stable compared to prior exam, no acute intracranial abnormality or cortical infarct identified, carotid ultrasound that showed right carotid with no significant stenosis post endarterectomy changes, left carotid that showed moderate atherosclerotic plaquing at the bifurcation with antegrade flow in both vertebral arteries, an echocardiogram that showed normal LV size with upper limits of normal of LV wall thickness with an EF of 55-60%, no pericardial effusion. PFSH Past Medical History Hx Anticoagulant Therapy: Yes (ASA 325 mg daily) Cancer: No Cardiovascular Problems: Yes Cerebrovascular Accident: Yes (possible in March) Diminished Hearing: Yes (HEARING AIDS) Endocrine: No Gastrointestinal Disorders: Yes (POLYP REMOVAL AND HEMROIDECTOMY LAST YEAR) Genitourinary: No Hypertension: Yes Immune Disorder: No Implanted Vascular Access Dvce: Yes Musculoskeletal: No Neurologic: Yes Psychiatric: No Reproductive: No Respiratory: No Thyroid Disease: Yes Past Surgical History Body Medical Devices: PT HAS PLATE IN L HIP Cardiac Surgery: Yes (carotid surgery) Other Surgery: Yes (HEMORRHOIDECTOMY) Social History Alcohol Use: Yes (1 BEER THE PAST 4 WEEKS) Tobacco Use: Yes (h.o, quit) Substance Use: No Allergies-Medications (Allergen,Severity, Reaction): Coded Allergies: No Known Allergies (Verified Adverse Reaction, Unknown, 01/03/18) Reported Meds & Prescriptions Reported Meds & Active Scripts Active Lisinopril 5 Mg Tab 5 Mg PO DAILY Lipitor (Atorvastatin Calcium) 10 Mg Tab 10 Mg PO HS 30 Days Reported Aspirin 325 Mg Tab 325 Mg PO DAILY Levothyroxine (Levothyroxine Sodium) 25 Mcg Tab Unknown Dose PO DAILY Review of Systems Except as stated in HPI: all other systems reviewed are Neg Physical Exam Narrative GENERAL: Well-developed, well-nourished, awake, alert, GCS 15, no apparent distress. SKIN: Focused skin assessment warm/dry. HEAD: Atraumatic. Normocephalic. EYES: Pupils equal and round. No scleral icterus. No injection or drainage. ENT: No nasal bleeding or discharge. Mucous membranes pink and moist. Bilateral tympanic membranes and external auditory canals are normal. NECK: Trachea midline. No JVD. CARDIOVASCULAR: Regular rate and rhythm. No murmur appreciated. RESPIRATORY: No accessory muscle use. Clear to auscultation. Breath sounds equal bilaterally. GASTROINTESTINAL: Abdomen soft, non-tender, nondistended. Hepatic and splenic margins not palpable. MUSCULOSKELETAL: No obvious deformities. No clubbing. No cyanosis. No edema. NEUROLOGICAL: Awake and alert. No obvious cranial nerve deficits. Motor grossly within normal limits. Normal speech. No focal deficits. PSYCHIATRIC: Appropriate mood and affect; insight and judgment normal. Data Data Last Documented VS Vital Signs Date Time Temp Pulse Resp B/P (MAP) Pulse Ox O2 Delivery O2 Flow Rate FiO2 01/03/18 19:28 70 16 158/89 (112) 69 16 167/97 (120) 68 16 163/91 (115) 01/03/18 19:22 96 Room Air 01/03/18 18:56 97.6 Orders Orders Electrocardiogram (01/03/18 19:13) Ckmb (Isoenzyme) Profile (01/03/18 19:13) Complete Blood Count With Diff (01/03/18 19:13) Comprehensive Metabolic Panel (01/03/18 19:13) D-Dimer (01/03/18 19:13) Magnesium (Mg) (01/03/18 19:13) Prothrombin Time / Inr (Pt) (01/03/18 19:13) Act Partial Throm Time (Ptt) (01/03/18 19:13) Troponin I (01/03/18 19:13) Ecg Monitoring (01/03/18 19:13) Iv Access Insert/Monitor (01/03/18 19:13) Oximetry (01/03/18 19:13) Sodium Chloride 0.9% Flush (Ns Flush) (01/03/18 19:15) CKMB (01/03/18 19:35) CKMB% (01/03/18 19:35) Urinalysis - C+S If Indicated (01/03/18 20:13) Ct Brain W/O Iv Contrast(Rout) (01/03/18 ) Meclizine (Antivert) (01/03/18 21:30) Labs Laboratory Tests Test 01/03/18 19:35 01/03/18 20:35 White Blood Count 7.3 TH/MM3 Red Blood Count 5.01 MIL/MM3 Hemoglobin 15.4 GM/DL Hematocrit 45.7 % Mean Corpuscular Volume 91.2 FL Mean Corpuscular Hemoglobin 30.8 PG Mean Corpuscular Hemoglobin Concent 33.8 % Red Cell Distribution Width 12.4 % Platelet Count 200 TH/MM3 Mean Platelet Volume 7.5 FL Neutrophils (%) (Auto) 75.6 % Lymphocytes (%) (Auto) 13.0 % Monocytes (%) (Auto) 6.2 % Eosinophils (%) (Auto) 3.1 % Basophils (%) (Auto) 2.1 % Neutrophils # (Auto) 5.5 TH/MM3 Lymphocytes # (Auto) 0.9 TH/MM3 Monocytes # (Auto) 0.5 TH/MM3 Eosinophils # (Auto) 0.2 TH/MM3 Basophils # (Auto) 0.2 TH/MM3 CBC Comment DIFF FINAL Differential Comment Prothrombin Time 10.7 SEC Prothromb Time International Ratio 1.1 RATIO Activated Partial Thromboplast Time 24.1 SEC D-Dimer Quantitative (PE/DVT) 0.25 MG/L FEU Blood Urea Nitrogen 16 MG/DL Creatinine 0.90 MG/DL Random Glucose 127 MG/DL Total Protein 7.0 GM/DL Albumin 3.7 GM/DL Calcium Level 8.2 MG/DL Magnesium Level 1.9 MG/DL Alkaline Phosphatase 75 U/L Aspartate Amino Transf (AST/SGOT) 18 U/L Alanine Aminotransferase (ALT/SGPT) 23 U/L Total Bilirubin 1.0 MG/DL Sodium Level 133 MEQ/L Potassium Level 3.8 MEQ/L Chloride Level 101 MEQ/L Carbon Dioxide Level 23.7 MEQ/L Anion Gap 8 MEQ/L Estimat Glomerular Filtration Rate 82 ML/MIN Total Creatine Kinase 112 U/L Creatine Kinase MB 1.0 NG/ML Troponin I LESS THAN 0.02 NG/ML Urine Color YELLOW Urine Turbidity CLEAR Urine pH 5.5 Urine Specific [place] 1.021 Urine Protein NEG mg/dL Urine Glucose (UA) NEG mg/dL Urine Ketones 40 mg/dL Urine Occult Blood NEG Urine Nitrite NEG Urine Bilirubin NEG Urine Leukocyte Esterase NEG Urine WBC 0-2 /hpf Urine Squamous Epithelial Cells 0-5 /hpf Microscopic Urinalysis Comment CULT NOT INDICATED MDM Medical Decision Making Medical Screen Exam Complete: Yes Emergency Medical Condition: Yes Differential Diagnosis Vertigo, vertebrobasilar insufficiency, CVA, carotid stenosis Narrative Course Vital signs reviewed. CBC is unremarkable. CMP is unremarkable. Cardiac enzymes are negative. D-dimer is negative at 0.25. UA is not suggestive of UTI. CT head shows no acute intracranial abnormality. The patient and the patient's son were made aware of all findings. He is resting comfortably, however continues to complain of feeling dizzy. He had an extensive workup just yesterday including MRIs, and echocardiogram, and carotid ultrasound. Given ongoing symptoms he'll be readmitted for further treatment and evaluation. Case discussed with hospitalist MASSIEL Duarte and the patient will be admitted to their service under Dr. Ruiz. Diagnosis Primary Impression: Vertigo Admitting Information Admitting Physician Requests: Observation Stevo Noland MD Jan 03, 2018 19:19
[2018-01-03 19:22] VITALS: BP_SYST 158; BP_SYST 181; BP_DIAS 89; BP_DIAS 91; PULSE 70; RESP 16; O2SAT 96
[2018-01-03 19:28] VITALS: BP_SYST 158; BP_SYST 163; BP_SYST 167; BP_DIAS 89; BP_DIAS 91; BP_DIAS 97; RESP 16
[2018-01-03 19:45] LABS: AUTOMATED NEUTROPHIL # 5.5 TH/MM3 (1.8-7.7); BASOPHIL # 0.2 TH/MM3 (0-0.2); BASOPHIL % 2.1 % (0.0-2.0); EOSINOPHIL # 0.2 TH/MM3 (0-0.4); EOSINOPHIL % 3.1 % (0.0-4.0); HEMATOCRIT 45.7 % (39.0-51.0); HEMOGLOBIN 15.4 GM/DL (13.0-17.0); LYMPHOCYTE # 0.9 TH/MM3 (1.0-4.8); MEAN CELL VOLUME 91.2 FL (80.0-100.0); MEAN CORPUSCULAR HEMOGLOBIN 30.8 PG (27.0-34.0); MEAN CORPUSCULAR HGB CONC 33.8 % (32.0-36.0); MEAN PLATELET VOLUME 7.5 FL (7.0-11.0); MONO % 6.2 % (0.0-8.0); MONOCYTE # 0.5 TH/MM3 (0-0.9); NEUT % 75.6 % (16.0-70.0); PLATELET COUNT 200 TH/MM3 (150-450); RED BLOOD COUNT 5.01 MIL/MM3 (4.50-5.90); RED CELL DISTRIBUTION WIDTH 12.4 % (11.6-17.2); WHITE BLOOD COUNT 7.3 TH/MM3 (4.0-11.0)
[2018-01-03 19:55] LABS: CHLORIDE 101 MEQ/L (98-107); SODIUM (NA) 133 MEQ/L (136-145)
[2018-01-03 19:59] LABS: ALBUMIN 3.7 GM/DL (3.4-5.0); BICARBONATE 23.7 MEQ/L (21.0-32.0); BLOOD UREA NITROGEN 16 MG/DL (7-18); CALCIUM 8.2 MG/DL (8.5-10.1); GLUCOSE,RANDOM 127 MG/DL (74-106); MAGNESIUM 1.9 MG/DL (1.5-2.5)
[2018-01-03 20:02] LABS: ALT (GPT) 23 U/L (12-78); AST (GOT) 18 U/L (15-37); GLOMERULAR FILTRATION RATE 82 ML/MIN (>89)
[2018-01-03 20:03] LABS: INTERNATIONAL NORMALIZED RATIO 1.1 RATIO; PROTHROMBIN TIME - PATIENT 10.7 SEC (9.8-11.6)
[2018-01-03 20:05] LABS: ALKALINE PHOSPHATASE 75 U/L (45-117)
[2018-01-03 20:08] LABS: TROPONIN I LESS THAN 0.02 NG/ML (0.02-0.05)
[2018-01-03 20:10] LABS: D-DIMER 0.25 MG/L FEU (0.00-0.50)
[2018-01-03 20:30] VITALS: BP 156/79; PULSE 70; RESP 16; O2SAT 97
[2018-01-03 20:50] LABS: BILIRUBIN, URINE NEG (NEG); BLOOD, URINE NEG (NEG); GLUCOSE,URINE NEG (NEG); KETONE, URINE 40 mg/dL (NEG); NITRITE,URINE NEG (NEG); PH, URINE 5.5 (5.0-8.5); URINE LEUKOCYTE ESTERASE NEG (NEG)
[2018-01-03 20:56] LABS: SQUAMOUS EPITHELIAL CELL URINE 0-5 /hpf (0-5); URINE COLOR YELLOW (YELLW/STRAW); WBC, URINE 0-2 /hpf (0-5)
--- NOTE | 2018-01-03 21:05 | RADRPT ---
EXAM DATE/TIME: 01/03/2018 20:44 [facility] COMPARISON: MRI BRAIN W/O CONTRAST, January 03, 2018, 9:40. CT BRAIN W/O CONTRAST, January 02, 2018, 17:54. INDICATIONS : Dizziness. RADIATION DOSE: 60.99 CTDIvol (mGy) MEDICAL HISTORY : Cardiovascular disease. Cerebrovascular disease. SURGICAL HISTORY : Left hip surgery, carotid surgery ENCOUNTER: Initial ACUITY: 1 day PAIN SCALE: 0/10 LOCATION: cranial TECHNIQUE: Multiple contiguous axial images were obtained of the head. Using automated exposure control and adj ustment of the mA and/or kV according to patient size, radiation dose was kept as low as reasonably a chievable to obtain optimal diagnostic quality images. DICOM format image data is available electro nically for review and comparison. FINDINGS: CEREBRUM: The ventricles are normal for age. No evidence of midline shift, mass lesion, hemorrhage or acute in farction. No extra-axial fluid collections are seen. POSTERIOR FOSSA: The cerebellum and brainstem are intact. The 4th ventricle is midline. The cerebellopontine angle i s unremarkable. EXTRACRANIAL: The visualized portion of the orbits is intact. SKULL: The calvaria is intact. No evidence of skull fracture. CONCLUSION: No acute intracranial abnormality. Jung Glass MD on January 03, 2018 at 21:02 Board Certified Radiologist. This report was verified electronically.
[2018-01-03] MEDS ORDERED: MECLIZINE HCL 25 MG TAB PO ONE (21:30)
[2018-01-03] MEDS ORDERED: ONDANSETRON HCL 4 MG/2 ML VIAL IVP PRN (21:30)
[2018-01-03] MEDS ORDERED: ACETAMINOPHEN 325 MG TAB PO PRN (21:30)
[2018-01-03] MEDS ORDERED: SODIUM CHLORIDE 0.9% FLUSH 10 ML FLUSH IV FLUSH PRN (21:30)
[2018-01-03] MEDS: HEPARIN SODIUM - SQ 10,000 UNITS/ML VIAL SQ SCH (21:53)
[2018-01-03 21:56] VITALS: BP 140/82; PULSE 72; RESP 16; O2SAT 98
[2018-01-04] VITALS (7 sets, daily range): BP systolic 97–139; BP diastolic 56–78; PULSE 64–80; RESP 16–18; TEMP 96.7–98.1; O2SAT 93–96
[2018-01-04 05:04] LABS: BASOPHIL % 0.8 % (0.0-2.0); EOSINOPHIL # 0.3 TH/MM3 (0-0.4); EOSINOPHIL % 4.8 % (0.0-4.0); HEMATOCRIT 45.7 % (39.0-51.0); HEMOGLOBIN 15.2 GM/DL (13.0-17.0); LYMPH % 22.3 % (9.0-44.0); LYMPHOCYTE # 1.4 TH/MM3 (1.0-4.8); MEAN CELL VOLUME 91.2 FL (80.0-100.0); MEAN CORPUSCULAR HEMOGLOBIN 30.4 PG (27.0-34.0); MEAN CORPUSCULAR HGB CONC 33.3 % (32.0-36.0); MEAN PLATELET VOLUME 7.4 FL (7.0-11.0); MONO % 8.6 % (0.0-8.0); MONOCYTE # 0.5 TH/MM3 (0-0.9); NEUT % 63.5 % (16.0-70.0); PLATELET COUNT 205 TH/MM3 (150-450); RED BLOOD COUNT 5.01 MIL/MM3 (4.50-5.90); RED CELL DISTRIBUTION WIDTH 12.6 % (11.6-17.2); WHITE BLOOD COUNT 6.2 TH/MM3 (4.0-11.0)
[2018-01-04 05:17] LABS: BICARBONATE 26.9 MEQ/L (21.0-32.0); CALCIUM 8.5 MG/DL (8.5-10.1)
[2018-01-04 05:21] LABS: CREATININE 0.88 MG/DL (0.60-1.30)
[2018-01-04] MEDS: HEPARIN SODIUM - SQ 10,000 UNITS/ML VIAL SQ SCH ×3 (05:53→22:15)
[2018-01-04] MEDS ORDERED: MECLIZINE HCL 25 MG TAB PO SCH (06:00)
--- NOTE | 2018-01-04 07:45 | HHI.HP ---
HPI Service [facility] Primary [facility] Phys[facility] Admission Diagnosis intractable vertigo Diagnoses: Chief Complaint: Dizziness Travel History International Travel<30 Days: No Contact w/Intl Traveler <30 Da: No Traveled to Known Affected Are: No History of Present Illness This is a pleasant 77 y/o male with History of CVA he takes Aspirin, came to ER at [facility] with Dizziness, he already was admitted with similar symptoms and had workup and was discharged yesterday at 3 PM, came back to ER, He states that he felt well when he was discharged, however when he went home and sat on his chair to watch TV began to feel dizzy again. He describes more of a lightheadedness feeling. There are no modifying factors. He is complaining of some tingling sensation in his bilateral feet and toes. No motor deficits. No fevers or recent illness. No chest pain or dyspnea. No headache. No visual changes. Chart reviewed from yesterday's admission shows that the patient had normal MRA brain, brain MRI that showed scattered areas of increased T2 signal in the white matter most consistent with moderate microvascular ischemic demyelinative change which are stable compared to prior exam, no acute intracranial abnormality or cortical infarct identified, carotid ultrasound that showed right carotid with no significant stenosis post endarterectomy changes, left carotid that showed moderate atherosclerotic plaquing at the bifurcation with antegrade flow in both vertebral arteries, an echocardiogram that showed normal LV size with upper limits of normal of LV wall thickness with an EF of 55-60%, no pericardial effusion. Seen in his bedroom at this time totally asymptomatic awaiting for Neurology specialist consult. Review of Systems Constitutional: DENIES: Fever, Chills, Change in appetite Endocrine: DENIES: Heat/cold intolerance Eyes: DENIES: Blurred vision, Eye pain Except as stated in HPI: all other systems reviewed are Neg Past Family Social History Past Medical History CAD CVA Hypoacusis using hearing aids Hypertension Hypothyroidism Hyperlipidemia Past Surgical History Hemorrhoidectomy Left Hip surgery Carotid Surgery Reported Medications Reported Meds & Active Scripts Active Lisinopril 5 Mg Tab 5 Mg PO DAILY Lipitor (Atorvastatin Calcium) 10 Mg Tab 10 Mg PO HS 30 Days Reported Aspirin 325 Mg Tab 325 Mg PO DAILY Levothyroxine (Levothyroxine Sodium) 25 Mcg Tab Unknown Dose PO DAILY Allergies: Coded Allergies: No Known Allergies (Verified Adverse Reaction, Unknown, 01/03/18) Active Ordered Medications Current Medications Medications (Trade) Dose Ordered Sig/Dulce Route Start Time Stop Time Status Last Admin (NS Flush) 2 ml UNSCH PRN IV FLUSH 01/03/18 21:30 (NS Flush) 2 ml BID IV FLUSH 01/04/18 09:00 (Tylenol) 650 mg Q4H PRN PO 01/03/18 21:30 (Zofran Inj) 4 mg Q6H PRN IVP 01/03/18 21:30 (Heparin Inj) 5,000 units Q8HR SQ 01/03/18 22:00 01/04/18 05:53 (Aspirin) 325 mg DAILY PO 01/04/18 09:00 (Lipitor) 10 mg HS PO 01/04/18 21:00 (Prinivil) 5 mg DAILY PO 01/04/18 09:00 (Synthroid) 25 mcg DAILY@0600 PO 01/04/18 08:00 (Antivert) 12.5 mg Q8HR PO 01/04/18 14:00 (Pill Splitter) 1 ea UNSCH PRN OTHER 01/04/18 08:00 Family History Mother of Leukemia Social History Lives alone and was a heavy beer drinker until three weeks ago. Physical Exam Vital Signs Vital Signs Date Time Temp Pulse Resp B/P (MAP) Pulse Ox O2 Delivery O2 Flow Rate FiO2 01/04/18 06:00 96.8 64 18 131/68 (89) 94 01/04/18 01:29 68 01/04/18 00:00 96.7 72 16 139/78 (98) 96 01/03/18 23:30 01/03/18 21:56 72 16 140/82 (101) 98 Room Air 01/03/18 20:30 70 16 156/79 (104) 97 01/03/18 19:28 70 16 158/89 (112) 69 16 167/97 (120) 68 16 163/91 (115) 01/03/18 19:22 70 16 158/89 (112) 96 Room Air 181/91 (121) 01/03/18 19:22 70 96 Room Air 01/03/18 18:56 97.6 74 16 161/108 (125 98 Physical Exam GENERAL: Well-developed, no apparent distress. SKIN: Focused skin assessment warm/dry. HEAD: Atraumatic. Normocephalic. EYES: Pupils equal and round. No scleral icterus. No injection or drainage. ENT: No nasal bleeding or discharge. Mucous membranes pink and moist. Bilateral tympanic membranes and external auditory canals are normal. Wears a hearing aid on right ear. NECK: Trachea midline. No JVD. CARDIOVASCULAR: Regular rate and rhythm. No murmur appreciated. RESPIRATORY: No accessory muscle use. Clear to auscultation. Breath sounds equal bilaterally. GASTROINTESTINAL: Abdomen soft, non-tender, nondistended. Hepatic and splenic margins not palpable. MUSCULOSKELETAL: No obvious deformities. No clubbing. No cyanosis. No edema. NEUROLOGICAL: Awake and alert. No obvious cranial nerve deficits. Motor grossly within normal limits. Normal speech. No focal deficits. PSYCHIATRIC: Appropriate mood and affect; insight and judgment normal. Laboratory Laboratory Tests Test 01/03/18 19:35 01/03/18 20:35 01/04/18 04:38 White Blood Count 7.3 6.2 Red Blood Count 5.01 5.01 Hemoglobin 15.4 15.2 Hematocrit 45.7 45.7 Mean Corpuscular Volume 91.2 91.2 Mean Corpuscular Hemoglobin 30.8 30.4 Mean Corpuscular Hemoglobin Concent 33.8 33.3 Red Cell Distribution Width 12.4 12.6 Platelet Count 200 205 Mean Platelet Volume 7.5 7.4 Neutrophils (%) (Auto) 75.6 63.5 Lymphocytes (%) (Auto) 13.0 22.3 Monocytes (%) (Auto) 6.2 8.6 Eosinophils (%) (Auto) 3.1 4.8 Basophils (%) (Auto) 2.1 0.8 Neutrophils # (Auto) 5.5 4.0 Lymphocytes # (Auto) 0.9 1.4 Monocytes # (Auto) 0.5 0.5 Eosinophils # (Auto) 0.2 0.3 Basophils # (Auto) 0.2 0.0 CBC Comment DIFF FINAL DIFF FINAL Differential Comment Prothrombin Time 10.7 Prothromb Time International Ratio 1.1 Activated Partial Thromboplast Time 24.1 D-Dimer Quantitative (PE/DVT) 0.25 Blood Urea Nitrogen 16 16 Creatinine 0.90 0.88 Random Glucose 127 89 Total Protein 7.0 Albumin 3.7 Calcium Level 8.2 8.5 Magnesium Level 1.9 Alkaline Phosphatase 75 Aspartate Amino Transf (AST/SGOT) 18 Alanine Aminotransferase (ALT/SGPT) 23 Total Bilirubin 1.0 Sodium Level 133 135 Potassium Level 3.8 3.9 Chloride Level 101 102 Carbon Dioxide Level 23.7 26.9 Anion Gap 8 6 Estimat Glomerular Filtration Rate 82 84 Total Creatine Kinase 112 Creatine Kinase MB 1.0 Troponin I LESS THAN 0.02 Thyroid Stimulating Hormone 3rd Gen 3.610 Urine Color YELLOW Urine Turbidity CLEAR Urine pH 5.5 Urine Specific [place] 1.021 Urine Protein NEG Urine Glucose (UA) NEG Urine Ketones 40 Urine Occult Blood NEG Urine Nitrite NEG Urine Bilirubin NEG Urine Leukocyte Esterase NEG Urine WBC 0-2 Urine Squamous Epithelial Cells 0-5 Microscopic Urinalysis Comment CULT NOT INDICATED Result Diagram: 01/04/18 0438 01/04/18 0438 Imaging Last Impressions Head CT 01/03/18 0000 Signed Impressions: Service Date/Time: December 20:44 - CONCLUSION: No acute intracranial abnormality. Jung Glass MD Caprini VTE Risk Assessment Caprini VTE Risk Assessment: Mod/High Risk (score >= 2) Caprini Risk Assessment Model Point Value = 1 Point Value = 2 Point Value = 3 Point Value = 5 Age 41-60 Minor surgery BMI > 25 kg/m2 Swollen legs Varicose veins or History of unexplained or recurrent spontaneous Oral contraceptives or hormone replacement Sepsis (< 1 month) Serious lung disease, including pneumonia (< 1 month) Abnormal pulmonary function Acute myocardial infarction Congestive heart failure (< 1 month) History of inflammatory bowel disease Medical patient at bed rest Age 61-74 Arthroscopic surgery Major open surgery (> 45 min) Laparoscopic surgery (> 45 min) Malignancy Confined to bed (> 72 hours) Immobilizing plaster cast Central venous access Age >= 75 History of VTE Family history of VTE Factor V Leiden Prothrombin [id number] Lupus anticoagulant Anticardiolipin antibodies Elevated serum homocysteine Heparin-induced thrombocytopenia Other congenital or acquired thrombophilia Stroke (< 1 month) Elective arthroplasty Hip, pelvis, or leg fracture Acute spinal cord injury (< 1 month) Prophylaxis Regimen Total Risk Factor Score Risk Level Prophylaxis Regimen 0-1 Low Early ambulation 2 Moderate Order ONE of the following: *Sequential Compression Device (SCD) *Heparin 5000 units SQ BID 3-4 Higher Order ONE of the following medications: *Heparin 5000 units SQ TID *Enoxaparin/Lovenox 40 mg SQ daily (WT < 150 kg, CrCl > 30 mL/min) *Enoxaparin/Lovenox 30 mg SQ daily (WT < 150 kg, CrCl > 10-29 mL/min) *Enoxaparin/Lovenox 30 mg SQ BID (WT < 150 kg, CrCl > 30 mL/min) AND/OR *Sequential Compression Device (SCD) 5 or more Highest Order ONE of the following medications: *Heparin 5000 units SQ TID (Preferred with Epidurals) *Enoxaparin/Lovenox 40 mg SQ daily (WT < 150 kg, CrCl > 30 mL/min) *Enoxaparin/Lovenox 30 mg SQ daily (WT < 150 kg, CrCl > 10-29 mL/min) *Enoxaparin/Lovenox 30 mg SQ BID (WT < 150 kg, CrCl > 30 mL/min) AND *Sequential Compression Device (SCD) Assessment and Plan Assessment and Plan 1. Benign paroxysmal Positional Vertigo, as per patient this symptoms are associated with changes in position initially after standing then in ER after moving his Cervical Spine. continue Meclizine, may benefit from the use of Muscle relaxant, will perform a Cervical X ray and follow specialist recommendations asked for Neurology specialist consult as per admitting physician. CBC unremarkable, CMP unremarkable, Cardiac Enzymes negative, D Dimer negative, CT brain no abnormality, He had an extensive workup just yesterday including MRIs, and echocardiogram, and carotid ultrasound. 2. CAD by history with history of Right Carotid Artery surgery, 3. CVA by history no residual deficit 4. Hypoacusis using hearing aids 5. Hypertension to continue Home medicines 6. Hypothyroidism to continue Hormonal replacement 7. Hyperlipidemia continue Statins DVT prophylaxis with Heparin. Code Status Full Code Discussed Condition With Patient Physician Certification 2 Midnight Certification Type: Admission for Inpatient Services Order for Inpatient Services The services are ordered in accordance with Medicare regulations or non- Medicare payer requirements, as applicable. In the case of services not specified as inpatient-only, they are appropriately provided as inpatient services in accordance with the 2-midnight benchmark. Estimated LOS (days): 3 days is the estimated time the patient will need to remain in the hospital, assuming treatment plan goals are met and no additional complications. Post-Hospital Plan: Home Dillon Barrios MD Jan 04, 2018 07:45
[2018-01-04] MEDS ORDERED: PILL SPLITTER OTHER PRN (08:00)
--- NOTE | 2018-01-04 10:03 | RADRPT ---
EXAM DATE/TIME: 01/04/2018 09:34 [facility] COMPARISON: No previous studies available for comparison. INDICATIONS : neck pain and dizziness MEDICAL HISTORY : Cardiovascular disease. Cerebrovascular disease SURGICAL HISTORY : Left hip surgery, carotid surgery ENCOUNTER: Initial ACUITY: 3 days PAIN SCORE: 2/10 LOCATION: Cervical spine FINDINGS: There are degenerative changes in the cervical spine loss of disc space height at C5-C6 and C6-7. Mo derate anterior osteophytosis is present. Minimalridge is present at C5-C6 and C6-C7 minimal bilateral neural foramina encroachment. AP and odontoid are unremarkable. CONCLUSION: Degenerative changes as described above. Delfino Estrada MD FACR on January 04, 2018 at 10:00 Board Certified Radiologist. This report was verified electronically.
[2018-01-04] MEDS: LEVOTHYROXINE SODIUM 25 MCG TAB PO SCH (10:10)
[2018-01-04] MEDS: ASPIRIN 325 MG TAB PO SCH (10:10)
[2018-01-04] MEDS: SODIUM CHLORIDE 0.9% FLUSH 10 ML FLUSH IV FLUSH SCH ×2 (10:10→20:21)
[2018-01-04] MEDS: METHOCARBAMOL 500 MG TAB PO SCH ×3 (10:11→22:15)
[2018-01-04] MEDS: LISINOPRIL 5 MG TAB PO SCH (10:11)
[2018-01-04] MEDS: MECLIZINE HCL 25 MG TAB PO SCH ×2 (13:46→22:15)
[2018-01-04] MEDS: CARBAMIDE PEROXIDE 6.5% OTIC SOLN 15 ML BTL RIGHT EAR SCH ×2 (14:00→20:21)
--- NOTE | 2018-01-04 14:58 | EKG ---
Date Performed: 01/03/2018 Time Performed: 19:26:14 PTAGE: 77 years EKG: Sinus rhythm INCOMPLETE RIGHT BUNDLE BRANCH BLOCK LEFT ANTERIOR FASCICULAR BLOCK MINIMAL VOLTAGE CRITERIA FOR LVH , CONSIDER NORMAL VARIANT Since previous tracing, no significant change noted ABNORMAL ECG PREVIOUS TRACING : 01/02/2018 18.14 DOCTOR: Ariella Lewis Interpretating Date/Time 01/04/2018 14:56:28
[2018-01-04] MEDS ORDERED: IOHEXOL 350 MG/ML 10 ML VIAL (for RAD DIAG) IVCONTRAST ONE (15:32)
--- NOTE | 2018-01-04 15:48 | MB ---
cc: ANAHY JOHNS M.D. DATE OF CONSULTATION: 01/04/2018. REASON FOR CONSULTATION: Possible vertigo. HISTORY OF PRESENT ILLNESS: This is a pleasant 77-year-old man primarily with a history of a stroke in the past on aspirin therapy. He came in because of dizziness. He was admitted yesterday and had a workup and comes back today because similar symptoms have recurred while sitting down. In the emergency department he states that the curtain was moving. He cannot tell me if its positional. When it first occurred, he was actually sitting and just relaxing and watching TV. He describes dizziness, lightheadedness, but not overt spinning. No chest pain. No shortness of breath. No tunnel vision. No loss of consciousness. Also, no motor deficits. While in the emergency room, he told the emergency room physician that the curtain was moving, which he notes, was not. PAST MEDICAL HISTORY: He has a past medical history as stated, but also: 1. Hypertension. 2. Hypothyroidism. 3. Hyperlipidemia. 4. He wears hearing aids in both ears. PAST SURGICAL HISTORY: 1. Hemorrhoids. 2. Left hip. 3. Carotid which was done right carotid last March. MEDICATIONS: 1. Lisinopril. 2. Lipitor. 3. Aspirin. 4. Synthroid. ALLERGIES: NONE REPORTED. FAMILY HISTORY: Leukemia in the mother. SOCIAL HISTORY: Lives alone. Used to drink heavily beer until three weeks ago. PHYSICAL EXAMINATION: VITAL SIGNS: Temperature 97.5, pulse 80, respiratory rate 18, blood pressure 130/64, satting at 95% room air. HEAD, EYES, EARS, NOSE, THROAT: Inspection of his ears shows impaction of cerumen in the right ear. Tympanic membranes are not visualized. Left ear tympanic membrane is intact. He does not wear the hearing aid in the left, only in the right. NECK: His neck is supple. There are no carotid bruits. HEART: Regular. NEUROLOGICAL EXAMINATION: Neurologically he is awake and alert. He is oriented and fluent. Hard of hearing. Pupils reactive. Visual alvarez full. Face symmetrical. Tongue midline. There is no nystagmus. Motor - no drift. No leg lag. Cerebellar - [id number] and [id number] normal. DTRs are 1 to 2+. Toes are downgoing. Gait around the room has been fine and intact. LABS: Reviewed. IMAGING STUDIES: C-spine x-ray shows degenerate changes. Brain MRI shows scattered T2 white matter change consistent with ischemic changes, stable to prior exam. No acute infarct. Back in March, his MRI was unremarkable as well. His carotid ultrasound and shows post endarterectomy changes on the right. No stenosis. His left carotid has moderate plaquing at the bifurcation. There is hard and soft plaque present. Mild elevation of the velocities suggesting less than 50% antegrade in both vertebral arteries. The [place] MRA was normal. There is no intracranial stenosis. IMPRESSION: 77-year-old man with dizziness versus vertigo. He does have cerumen impaction in the right ear. Recommend giving him some Debrox and disimpacting that right ear. He needs to have his ears flushed. Would recommend also for him to have a CTA of the carotids to better delineate the plaque in the left carotid. Check a B12 level and if his workup is negative I would recommend outpatient Holter with vestibular rehab. Thank you. MD DUSTIN Lange/HIRA /1:17 PM /3:29 PM
--- NOTE | 2018-01-04 16:06 | RADRPT ---
EXAM DATE/TIME: 01/04/2018 15:15 [facility] COMPARISON: No previous studies available for comparison. INDICATIONS : Dizziness. Lightheaded. Evaluate for occlusion. IV CONTRAST: 75 cc Omnipaque 350 (iohexol) IV RADIATION DOSE: 43.01 CTDIvol (mGy) MEDICAL HISTORY : Cerebrovascular disease. Hypertension. SURGICAL HISTORY : Carotid endarterectomy. ENCOUNTER: Initial ACUITY: 4 - 6 days PAIN SCALE: 0/10 LOCATION: neck Elevated flow velocities and ICA/CCA ratios have been found to correlate with increased degrees of vessel stenosis, calculated as percentage of diameter relative to a normal segment of distal ICA/CCA. TECHNIQUE: Volumetric scanning was performed using a multirow detector CT scanner. The data was post processed with a variety of visualization algorithms including full-volume maximum intensity projection, multip lanar sliding thin-slab reformation, curved-planar reformation, and surface-rendering techniques. Us ing automated exposure control and adjustment of the mA and/or kV according to patient size, radiatio n dose was kept as low as reasonably achievable to obtain optimal diagnostic quality images. DICOM f ormat image data is available electronically for review and comparison. FINDINGS: AORTIC ARCH: Scattered calcification of the aortic arch. Arch vessels are patent. RIGHT CAROTID: Patient appears to have a carotid endarterectomy on the right. Comment an internal remained widely pa tent. Minimal central stenosis of the external. The external carotid artery is intact. LEFT CAROTID: The common carotid artery is intact. The carotid bulb has a normal configuration without ulceration or narrowing. Calcification of the proximal internal were calcified and noncalcified plaque in a non- ostial distribution of the proximal internal with a resultant 50% stenosis which would not be conside red hemodynamically significant. The internal carotid is otherwise patent into the skull base. The e xternal carotid artery is intact. VERTEBRALS: Patient is slightly left vertebral dominant. MISCELLANEOUS: Subcentimeter hypodensities in the right lobe of the thyroid are nonspecific but overtly benign proba hawk representing small follicular cysts. CONCLUSION: 1. Previous right carotid endarterectomy. Minimal stenosis of the proximal right external at the rig t carotid system otherwise is patent. 2. 50% ostial stenosis of the proximal left internal carotid. This would not be considered hemodynami radha significant. 3. Scattered calcification of the aortic arch. Arch vessels are patent. Patient is slightly left vert ebral dominant. 4. Small, subcentimeter hypodensities in the right lobe of the thyroid are nonspecific but overtly be nign, probably representing small follicular cysts. José Miguel Lutz MD on January 04, 2018 at 15:55 Board Certified Radiologist. This report was verified electronically.
[2018-01-04] MEDS ORDERED: ATORVASTATIN 10 MG TAB PO SCH (21:00)
[2018-01-05 00:37] VITALS: BP 108/60; PULSE 61; RESP 16; TEMP 96.8; O2SAT 97
[2018-01-05 04:00] VITALS: BP 114/73; PULSE 56; RESP 16; TEMP 97.6; O2SAT 98
[2018-01-05] MEDS: MECLIZINE HCL 25 MG TAB PO SCH ×2 (05:54→14:26)
[2018-01-05] MEDS: LEVOTHYROXINE SODIUM 25 MCG TAB PO SCH (05:55)
[2018-01-05] MEDS: METHOCARBAMOL 500 MG TAB PO SCH ×2 (05:55→14:26)
[2018-01-05] MEDS: HEPARIN SODIUM - SQ 10,000 UNITS/ML VIAL SQ SCH ×2 (05:58→14:26)
[2018-01-05 08:00] VITALS: BP 130/80; PULSE 70; RESP 24; TEMP 96.6; O2SAT 95
[2018-01-05] MEDS: LISINOPRIL 5 MG TAB PO SCH (08:29)
[2018-01-05] MEDS: SODIUM CHLORIDE 0.9% FLUSH 10 ML FLUSH IV FLUSH SCH (08:29)
[2018-01-05] MEDS: ASPIRIN 325 MG TAB PO SCH (08:29)
[2018-01-05] MEDS: CARBAMIDE PEROXIDE 6.5% OTIC SOLN 15 ML BTL RIGHT EAR SCH (08:30)
--- NOTE | 2018-01-05 11:03 | HHI.PR ---
Subjective Remarks Follow-up dizziness. Patient seen and examined, lying in bed comfortably with no apparent distress. Patient states that dizziness has resolved. Denies any lightheadedness. Has been ambulating to bathroom. Denies any headaches. Patient states that he's been eating well with no abdominal pain, nausea or vomiting. Patient has been receiving eardrops, states relief of feeling of blockage. Vitamin B12 pending. Neurology following. Images reviewed. Awaiting PT fall evaluation. Objective Vitals Vital Signs Date Time Temp Pulse Resp B/P (MAP) Pulse Ox O2 Delivery O2 Flow Rate FiO2 01/05/18 08:00 96.6 70 24 130/80 (97) 95 01/05/18 04:00 97.6 56 16 114/73 (87) 98 01/05/18 00:37 96.8 61 16 108/60 (76) 97 01/04/18 20:00 97.7 65 18 97/56 (70) 93 01/04/18 16:00 98.1 68 18 130/73 (92) 96 01/04/18 12:00 97.5 80 18 130/64 (86) 95 I/O 01/04/18 01/04/18 01/04/18 01/05/18 01/05/18 01/05/18 07:00 15:00 23:00 07:00 15:00 23:00 Intake Total 640 ml Balance 640 ml Intake Oral 640 ml # Voids 3 3 # Bowel Movements 0 Result Diagram: 01/04/18 0438 01/04/18 0438 Imaging Last Impressions Neck CTA 01/04/18 0000 Signed Impressions: Service Date/Time: Thursday, January 04, 2018 15:15 - CONCLUSION: 1. Previous right carotid endarterectomy. Minimal stenosis of the proximal right external at the right carotid system otherwise is patent. 2. 50%% ostial stenosis of the proximal left internal carotid. This would not be considered hemodynamically significant. 3. Scattered calcification of the aortic arch. Arch vessels are patent. Patient is slightly left vertebral dominant. 4. Small, subcentimeter hypodensities in the right lobe of the thyroid are nonspecific but overtly benign, probably representing small follicular cysts. José Miguel Lutz MD Cervical Spine X-Ray 01/04/18 0000 Signed Impressions: Service Date/Time: Thursday, January 04, 2018 09:34 - CONCLUSION: Degenerative changes as described above. Delfino Estrada MD FACR Head CT 01/03/18 0000 Signed Impressions: Service Date/Time: December 20:44 - CONCLUSION: No acute intracranial abnormality. Jung Glass MD Objective Remarks GENERAL: Well-nourished, well-developed patient in NAD. SKIN: Warm and dry. No rash. HEAD: Normocephalic. Atraumatic. EYES: Pupils equal and round. No scleral icterus. No injection or drainage. ENT: No nasal bleeding or discharge. Mucous membranes pink and moist. NECK: Supple. Trachea midline. CARDIOVASCULAR: Regular rate and rhythm. S1, S2 noted. No murmur appreciated. RESPIRATORY: No accessory muscle use. Clear to auscultation. Breath sounds equal bilaterally. GASTROINTESTINAL: Abdomen soft, non-tender, nondistended. Normoactive bowel sounds x4. MUSCULOSKELETAL: No obvious deformities. Extremities without clubbing, cyanosis , or edema. NEUROLOGICAL: Awake and alert. No obvious cranial nerve deficits. Motor grossly within normal limits. 5/5 muscle strength in bilateral upper and lower extremities. Normal speech. PSYCHIATRIC: Appropriate mood and affect; insight and judgment normal. A/P Assessment and Plan Benign paroxysmal Positional Vertigo, as per patient this symptoms are associated with changes in position initially after standing then in ER after moving his Cervical Spine. CBC unremarkable, CMP unremarkable, Cardiac Enzymes negative, D Dimer negative, CT brain no abnormality, He had an extensive workup just yesterday from previous ER presentation including MRIs, and echocardiogram, and carotid ultrasound. Neurology consulted and following. Appreciate input. Continued Debrox drops. Cervical x-ray showing degenerative changes. Continue muscle relaxant. Denies any meclizine. CAD by history with history of Right Carotid Artery surgery. Continue aspirin. CVA by history no residual deficit Hypoacusis using hearing aids Hypertension to continue Home medicines Hypothyroidism to continue Hormonal replacement Hyperlipidemia: Neck CTA showing 50% ostial stenosis of the left internal carotid. Will increase statin dose. DVT prophylaxis with Heparin. Discharge Planning Vitamin B12 normal. PT evaluation, patient did well with recommendations for vestibular rehab and outpatient PT, DC home today. Lilli Motley Jan 05, 2018 11:03
[2018-01-05 12:00] VITALS: BP 120/69; PULSE 70; RESP 20; TEMP 97.8; O2SAT 94
--- NOTE | 2018-01-05 15:45 | HHI.DCPOC ---
Discharge Care Plan Diagnosis: (1) Hypertension (2) Vestibulopathy Goals to Promote Your Health * To prevent worsening of your condition and complications * To maintain your health at the optimal level Directions to Meet Your Goals Take your medications as prescribed Follow your dietary instruction Follow activity as directed Keep your appointments as scheduled Take your immunizations and boosters as scheduled If your symptoms worsen call your PCP, if no PCP go to Urgent Care Center or Emergency Room Smoking is Dangerous to Your Health. Avoid second hand smoke Call the 24-hour hour crisis hotline for domestic abuse at Lilli Motley Jan 05, 2018 15:45
[2018-01-05] MEDS ORDERED: MECL1TAB42 PO (15:48)
[2018-01-05] MEDS ORDERED: METH500T3 PO (15:48)
[2018-01-05] MEDS ORDERED: ATOR40TA16 PO (15:48)
--- NOTE | 2018-01-05 16:01 | HHI.FF ---
Face to Face Verification Diagnosis: (1) Vestibulopathy (2) Dizziness (3) Vertigo (4) History of CVA (cerebrovascular accident) Home Health Nursing Order: Medical education Signs/symptoms of disease process Medication education-adverse effect Nursing assessment with vital signs I have seen patient Garett Morejon on 01/05/18. My clinical findings support the need for the requested home health care services because: Limited ability to care for self I certify that my clinical findings support that this patient is homebound because: Impaired cognitive ability/safety Lilli Motley Jan 05, 2018 16:01
[2018-01-05] MEDS ORDERED: ATORVASTATIN 40 MG TAB PO SCH (21:00)
--- NOTE | 2018-01-09 09:49 | HM ---
Date Performed: 01/05/2018 Time Performed: 16:42:00 HOOKUP DATE: 01/05/18 04:42:00 PM Sat ANALYSIS START TIME: 01/05/2018 4:47:00 PM ANALYSIS END TIME: 01/06/2018 4:51:00 PM PATIENT AGE: 77 PATIENT HEIGHT PATIENT WEIGHT DRUG LIST PATIENT DIAGNOSIS: vertigo TEST NARRATIVE: The patient's average heart rate was 74 BPM. No episodes of tachycardia wer e noted. No episodes of bradycardia were noted. No pauses exceeding 2.0 seconds were noted. 53331 ventricular ectopics, which represented 13% of the total beat count, were noted. The highest v entricular ectopic frequency occurred from 11:00 AM to 12:00 PM Sun. During this time 1832 VE(s) occ [place]red. [place] [address] isolated beat(s) and as 91 couplet(s). No runs w ere noted. Some of the ventricular beats occurred in bigeminal cycles. 1496 supraventricular ect opics, which represented 1% of the total beat count, were noted. The highest supraventricular ectopi c frequency occurred from 09:00 PM to 10:00 PM Sat. During this time 186 SVE(s) occurred. No epi sodes of ST depression (defined as -1.0 mm or more) were noted in channel 1. No episodes of ST depre ssion (defined as -1.0 mm or more) were noted in channel 2. No episodes of ST depression (defined as -1.0 mm or more) were noted in channel 3. NO DIARY GIVEN TO PATIENT TEST INTERPRETATION: Patient was monitored for 24 hours and 4 minutes. The minimum heart rate wa s 51 bpm, maximum heart rate was 117 bpm, and the average heart rate is 74 bpm. Holter notable for s everal short atrial runs. Occassional atrial and ventricular ectopy with occassional ventricular coup lets, but no sustained atrial fibrillation or other dysrhythmia. Signed by : Fidencio Rust
== END 2018-01-05 18:15 | disposition home health service (06) ==
LOC: PHED 18:46 → PHEDA 21:27 → PH3B 23:32
PROVIDERS: ADMIT Hospitalist; ATTEND Hospitalist
DX: H81.10 Benign paroxysmal vertigo, unspecified ear (principal); H81.20 Vestibular neuronitis, unspecified ear; H61.21 Impacted cerumen, right ear; R42 Dizziness and giddiness; I10 Essential (primary) hypertension; I25.10 Atherosclerotic heart disease of native coronary artery without angina pectoris; E78.5 Hyperlipidemia, unspecified; E03.9 Hypothyroidism, unspecified; R79.89 Other specified abnormal findings of blood chemistry; R79.1 Abnormal coagulation profile; R94.31 Abnormal electrocardiogram [ECG] [EKG]; I45.2 Bifascicular block; Z86.73 Personal history of transient ischemic attack (TIA), and cerebral infarction without residual deficits; Z79.82 Long term (current) use of aspirin
CPT/HCPCS: 70450; 70498; 72050; 80048; 80053; 81001; 82550; 82552; 82607; 83735; 84443; 84484; 85025; 85379; 85610; 85730; 93005; 93225; 93226; 96372; 97161; 99285; G0378; G8987; J1644; Q9967; G8988-GP